=== PATIENT | male | born 1960 | race Caucasian/White ===

== ENCOUNTER 2017-12-30 08:14 | Day surgery (SDC) | payer OTHER ==
[2017-12-23 10:04] VITALS: BMI 23.7
[2017-12-30 08:46] LABS: BASO # 0.01 K/mm3 (0.0-2.0); BASO % 0.2 % (0.0-3.0); EOS # 0.2 (0.0-0.7); EOS % 2.9 % (1.5-5.0); GRAN # 3.24 (1.4-6.5); GRAN % 55.2 % (50.0-68.0); LYMPH # 1.9 (1.2-3.4); LYMPH % 32.7 % (22.0-35.0); MEAN CELL VOLUME 89.2 fl (80.0-105.0); MEAN CORPUSCULAR HEMOGLOBIN 30.4 pg (25.0-35.0); MEAN CORPUSCULAR HGB CONC 34.1 g/dl (31.0-37.0); MEAN PLATELET VOLUME 9.3 fl (7.0-11.0); MONO # 0.5 (0.1-0.6); RBC 4.27 10^6/uL (3.5-6.1); RED CELL DISTRIBUTION WIDTH 13.6 % (11.5-14.5); WHITE BLOOD COUNT 5.9 10^3/ul (4.5-11.0)
[2017-12-30 08:55] LABS: INR 0.99; PARTIAL THROMBOPLASTIN TIME 30.6 Seconds (25.1-36.5); PROTHROMBIN TIME 11.4 SECONDS (9.4-12.5)
[2017-12-30 08:57] LABS: BLOOD UREA NITROGEN 21 mg/dL (7-21); CALCIUM 9.4 mg/dL (8.4-10.5); GFR NON-AFRICAN AMERICAN > 60
[2017-12-30] MEDS ORDERED: Lidocaine PF 2% (5 ml) Inj (For Cardiac Arrhy) ONE (09:09)
[2017-12-30] MEDS ORDERED: Iodixanol 320 MG/ML 200 ML BOTTLE IV ONE (09:11)
[2017-12-30] MEDS ORDERED: Iodixanol 320 MG/ML 100 ML BOTTLE IV ONE ×2 (09:11→10:15)
[2017-12-30] MEDS ORDERED: Nitroglycerin 50mg in D5W 50 MG/250 ML BOTTLE IV ONE (09:13)
[2017-12-30 09:14] VITALS: O2SAT 98
[2017-12-30] MEDS ORDERED: Midazolam 2 MG/2 ML VIAL ONE ×3 (09:42→10:22)
[2017-12-30] MEDS ORDERED: Oxycodone/Acetaminophen 5/325 mg Tab PO PRN (11:31)
[2017-12-30] MEDS ORDERED: Sodium Chloride 0.45% 1,000 ML IV SCH (11:45)
[2017-12-30 12:41] VITALS: TEMP 98
[2017-12-30 13:13] VITALS: RESP 18
[2017-12-30 14:44] VITALS: BP 142/76; PULSE 58
--- NOTE | 2017-12-30 17:35 | VASCULAR ---
PROCEDURE: Sub selective celiac and SMA arteriograms HISTORY: Metastatic colorectal CA. Evaluation for Y 90 radio embolization. PHYSICIAN(S): Jean-Paul Maria MD. TECHNIQUE: The relative risks and indications of the procedure were explained the patient consent obtained. Patient placed supine on angiogram table right groin prepped and draped usual sterile fashion. Conscious sedation monitoring were provided throughout the procedure by a nurse. The right common femoral artery was punctured and a 5 [place] sheath placed. 5 [place] C2 catheter was placed in the proximal SMA. A DSA SMA arteriogram was performed. Next the catheter was placed in the origin celiac axis and a DSA celiac axis arteriogram performed. A Progreat micro catheter was placed through the 5 [place] catheter. Multiple attempts at engaging the origin of the left gastric artery were unsuccessful. Selective imaging of the common hepatic artery was performed. Next sub selective imaging of the left hepatic artery, middle hepatic artery, and right hepatic artery was performed. No embolization was required. Tc MAA was instilled into the right hepatic artery. The catheters and sheath was removed hemostasis obtained with a Perclose device. The patient tolerated the procedure well. FINDINGS: No apparent supply to the liver is appreciated off the SMA injection. The portal vein is patent. The SMA is widely patent. No apparent supplied was identified to the left lobe of the liver. The middle hepatic artery supplies segment 4A and B. The right hepatic artery is patent and normal with a moderate tumor blush. IMPRESSION: Y 90 mapping as described above.
== END 2017-12-30 17:00 | disposition home or self-care (01) ==
LOC: SDSVAS 08:14
PROVIDERS: ATTEND Radiology Vascular & Interventional Radiology
DX: C78.7 Secondary malignant neoplasm of liver and intrahepatic bile duct (principal); C18.9 Malignant neoplasm of colon, unspecified
CPT/HCPCS: 36247 ×2; 36248 ×2; 36415; 75726 ×2; 75774 ×3; 80048; 85025; 85610; 85730; 99152; 99153; C1760 ×2; C1769 ×4; C1894; J1644; J2250; J2405; J3010; J7030; Q9966; Q9967

== ENCOUNTER 2018-01-08 10:32 | Inpatient (IN) | payer OTHER ==
[2018-01-08 10:48] VITALS: BMI 23.1
[2018-01-08] MEDS ORDERED: Sodium Chloride 0.9% 500 ML IV STA ×2 (11:02→12:03)
[2018-01-08 11:34] LABS: VENOUS BLOOD GAS BASE EXCESS 3.3 mmol/L (0.0-2.0); VENOUS BLOOD GAS PO2 23 mm/Hg (30-55); VENOUS BLOOD PH 7.39 (7.32-7.43)
[2018-01-08] MEDS ORDERED: Morphine 4 mg/ml ISec IVP STA (11:36)
[2018-01-08 11:37] LABS: BASO # 0.01 K/mm3 (0.0-2.0); BASO % 0.1 % (0.0-3.0); EOS % 0.3 % (1.5-5.0); GRAN # 8.28 (1.4-6.5); GRAN % 75.2 % (50.0-68.0); HEMOGLOBIN 13.1 g/dL (14.0-18.0); LYMPH # 1.3 (1.2-3.4); LYMPH % 12.1 % (22.0-35.0); MEAN CELL VOLUME 86.6 fl (80.0-105.0); MEAN CORPUSCULAR HEMOGLOBIN 30.9 pg (25.0-35.0); MEAN CORPUSCULAR HGB CONC 35.7 g/dl (31.0-37.0); MEAN PLATELET VOLUME 9.5 fl (7.0-11.0); MONO # 1.4 (0.1-0.6); MONO % 12.3 % (1.0-6.0); RBC 4.24 10^6/uL (3.5-6.1); RED CELL DISTRIBUTION WIDTH 13.1 % (11.5-14.5)
[2018-01-08 11:53] LABS: ALB/GLOB RATIO 1.1 (1.1-1.8); ALBUMIN 4.3 g/dL (3.0-4.8); ALT/SGPT 37 U/L (7-56); AST/SGOT 93 U/L (17-59); BLOOD UREA NITROGEN 25 mg/dL (7-21); CALCIUM 9.7 mg/dL (8.4-10.5); GFR NON-AFRICAN AMERICAN > 60; LIPASE 92 U/L (23-300)
--- NOTE | 2018-01-08 12:13 | RAD ---
Date of service: 01/08/2018 HISTORY: abd pain COMPARISON: No prior. FINDINGS: LUNGS: No active pulmonary disease. PLEURA: No significant pleural effusion identified, no pneumothorax apparent. CARDIOVASCULAR: Normal. OSSEOUS STRUCTURES: No significant abnormalities. VISUALIZED UPPER ABDOMEN: Normal. OTHER FINDINGS: None. IMPRESSION: No active disease.
--- NOTE | 2018-01-08 12:41 | ED PDOC ---
Arrival/HPI - General Historian: Patient, Family <Lachelle Heller - Last Filed: 01/08/18 19:38> <Clint Garzon - Last Filed: 01/11/18 11:24> - General Chief Complaint: Abdominal Pain Time Seen by Provider: 01/08/18 10:59 - History of Present Illness Narrative History of Present Illness (Text): 01/08/18 12:49 57-year-old male with a history of metastatic colon cancer to liver presents today with worsening right sided abdominal pain. Patient states he's been having abdominal pain for the past week. Patient states he had a CAT scan of the abdomen as well well as an MRI of the abdomen. Patient states he has not taken any medications for pain at home. Patient states he's been having nausea vomiting and diarrhea. Patient is complaining of subjective fevers and chills at home. He denies any urinary symptoms. Denies bladder or bowel incontinence. Patient is complaining of cramping sensation in the bilateral lower legs. ( Lachelle Heller) Past Medical History - Provider Review Nursing Documentation Reviewed: Yes - Travel History Have you recently traveled outside [place] w/in the past 3 mons?: Yes If Yes, travel location?: [facility] - Infectious Disease Hx of Infectious Diseases: None - Cardiac Hx Cardiac Disorders: No Hx Pacemaker: No - Pulmonary Hx Respiratory Disorders: No - Neurological Hx Neurological Disorder: No Hx Paralysis: No - HEENT Hx HEENT Disorder: No - Renal Hx Renal Disorder: No - Endocrine/Metabolic Hx Diabetes Mellitus Type 2: Yes - Hematological/Oncological Hx Blood Disorders: No Hx Blood Transfusions: No - Integumentary Hx Dermatological Disorder: No - Musculoskeletal/Rheumatological Hx Musculoskeletal Disorders: Yes (right shoulder; tear) - Gastrointestinal Other/Comment: colon cancer with mets - Psychiatric Hx Psychophysiologic Disorder: No Hx Emotional Abuse: No Hx Physical Abuse: No Hx Substance Use: No - Surgical History Other/Comment: 12/2017 "camera through groin to look at liver" - Anesthesia Hx Anesthesia: Yes Hx Anesthesia Reactions: No Hx Malignant Hyperthermia: No - Suicidal Assessment Feels Threatened In Home Enviroment: No <Lachelle Heller - Last Filed: 01/08/18 19:38> Family/Social History - Physician Review Nursing Documentation Reviewed: Yes Family/Social History: Unknown Family HX Smoking Status: Never Smoked Hx Alcohol Use: Yes (past ETOH) Hx Substance Use: No <Lachelle Heller - Last Filed: 01/08/18 19:38> Allergies/Home Meds <Lachelle Heller - Last Filed: 01/08/18 19:38> <Clint Garzon - Last Filed: 01/11/18 11:24> Allergies/Adverse Reactions: Allergies No Known Allergies Allergy (Verified 10/30/17 18:26) Home Medications: Home Meds Medication Instructions Recorded Confirmed Glyburide/Metformin HCl 1 tab PO DAILY 12/23/17 01/08/18 [Glucovance 5 mg-500 mg] Review of Systems - Review of Systems Constitutional: Fatigue, Fevers Respiratory: Cough. absent: SOB Cardiovascular: absent: Chest Pain, Palpitations Gastrointestinal: Abdominal Pain, Diarrhea, Nausea, Vomiting Genitourinary Male: absent: Dysuria, Frequency, Hematuria, Urinary Output Changes Musculoskeletal: Arthralgias. absent: Back Pain, Neck Pain Skin: absent: Rash, Pruritis Neurological: absent: Headache, Dizziness Psychiatric: absent: Anxiety, Depression, Suicidal Ideation <Lachelle Heller T - Last Filed: 01/08/18 19:38> Physical Exam Vital Signs Reviewed: Yes Temperature: Afebrile Blood Pressure: Normal Pulse: Tachycardic Respiratory Rate: Normal Appearance: Positive for: Well-Appearing, Non-Toxic, Comfortable Pain Distress: None Mental Status: Positive for: Alert and Oriented X 3 - Systems Exam Head: Present: Atraumatic Mouth: Present: Moist Mucous Membranes Neck: Present: Normal Range of Motion Respiratory/Chest: Present: Clear to Auscultation, Good Air Exchange. No: Respiratory Distress, Accessory Muscle Use Cardiovascular: Present: Regular Rate and Rhythm, Normal S1, S2. No: Murmurs Abdomen: Present: Tenderness (+ right sided abd tenderness). No: Distention, Peritoneal Signs, Rebound, Guarding Back: Present: Normal Inspection. No: Midline Tenderness, Paraspinal Tenderness Upper Extremity: Present: Normal ROM Lower Extremity: Present: NORMAL PULSES, Normal ROM, Neurovascularly Intact, Capillary Refill < 2 s. No: Edema, CALF TENDERNESS Neurological: Present: GCS=15, Speech Normal Skin: Present: Warm, Dry, Normal Color. No: Rashes Psychiatric: Present: Alert, Oriented x 3 <Lachelle Heller - Last Filed: 01/08/18 19:38> Vital Signs Temp Pulse Resp BP Pulse Ox 01/08/18 15:30 79 18 98 01/08/18 14:58 98.3 F 79 19 121/74 98 01/08/18 12:40 98.2 F 100 H 18 98 01/08/18 12:07 100.5 F H 01/08/18 10:37 98.6 F 102 H 18 145/90 98 Medical Decision Making <Lachelle Heller - Last Filed: 01/08/18 19:38> <HieustephanyClint - Last Filed: 01/11/18 11:24> ED Course and Treatment: 01/08/18 12:51 Patient is nontoxic well appearing with stable vital signs presenting with right sided abdominal pain. hx of colon cancer with mets to liver. pt had CT on 01/04 and MR on 01/06 for same pain. pt found to have rectal temp 100. 5 CBC: wnl CMP: elevated LFts, glucose; 350 Lipase: wnl Urinalysis: + blood, Ultrasound: bilateral lower extremities; no dvt verbal report from [facility]. Patient reassessment: pt was given morphine and zofran. pt feeling better after medications. Discussed all results with patient in depth case discussed with dr. cabrera; accepts observational status admission for abdominal pain and fever. Impression: abdominal pain, fever, hyperglycemia admit observational status to med surg 01/08/18 14:18 (Lachelle Heller) - Lab Interpretations Microbiology Results: Microbiology Results 01/08/18 14:42 Blood Blood Culture - Preliminary NO GROWTH AFTER 48 HOURS 01/08/18 14:30 Blood Blood Culture - Preliminary NO GROWTH AFTER 48 HOURS 01/08/18 13:00 Urine Urine Culture - Final No Growth (<1,000 CFU/ML) Lab Results: 01/09/18 06:30 01/09/18 06:30 Lab Results 01/09/18 07:28: POC Glucose (mg/dL) 181 H 01/09/18 06:30: Sodium 137, Chloride 99, Potassium 4.1, Carbon Dioxide 28, Anion Gap 14, BUN 20, Creatinine 1.0, Est GFR ( Amer) > 60, Est GFR (Non- Af Amer) > 60, Random Glucose 187 H, Calcium 8.9, Phosphorus 2.8, Magnesium 2.1 , Total Bilirubin 1.4 H, AST 104 H, ALT 67 H, Alkaline Phosphatase 151 H, Total Protein 7.6, Albumin 3.8, Globulin 3.8, Albumin/Globulin Ratio 1.0 L 01/09/18 06:30: WBC 9.0, RBC 4.30, Hgb 13.0 L, Hct 37.5 L, MCV 87.2, MCH 30.2, MCHC 34.7, RDW 13.2, Plt Count 177, MPV 9.7, Gran % 71.3 H, Lymph % (Auto) 13.5 L, [place] % (Auto) 14.8 H, Eos % (Auto) 0.3 L, Baso % (Auto) 0.1, Gran # 6.39, Lymph # (Auto) 1.2, [place] # (Auto) 1.3 H, Eos # (Auto) 0.0, Baso # (Auto) 0.01 01/08/18 21:01: POC Glucose (mg/dL) 263 H 01/08/18 16:48: PT 13.8 H, INR 1.21, APTT 29.4 01/08/18 16:48: Procalcitonin 0.62 H 01/08/18 16:29: POC Glucose (mg/dL) 123 H 01/08/18 15:22: POC Glucose (mg/dL) 178 H 01/08/18 13:00: Urine Color Yellow, Urine Appearance Clear, Urine pH 7.0, Ur Specific [place] 1.025, Urine Protein >=300 H, Urine Glucose (UA) Negative, Urine Ketones Negative, Urine Blood Moderate H, Urine Nitrate Negative, Urine Bilirubin Negative, Urine Urobilinogen 1.0 H, Ur Leukocyte Esterase Negative, Urine RBC 2 - 5, Urine WBC 0 - 2, Ur Epithelial Cells 0 - 2, Urine Bacteria Few 01/08/18 11:20: pO2 23 L, VBG pH 7.39, VBG pCO2 48.0, VBG HCO3 29.1 H, VBG Total CO2 30.6 H, VBG O2 Sat (Calc) 42.2, VBG Base Excess 3.3 H, VBG Potassium 4.5, Sodium 129.0 L, Chloride 94.0 L, Glucose 355 H, Lactate 1.6, FiO2 21.0, Venous Blood Potassium 4.5 01/08/18 11:20: WBC 11.0 D, RBC 4.24, Hgb 13.1 L, Hct 36.7 L, MCV 86.6, MCH 30.9, MCHC 35.7, RDW 13.1, Plt Count 163, MPV 9.5, Gran % 75.2 H, Lymph % (Auto ) 12.1 L, [place] % (Auto) 12.3 H, Eos % (Auto) 0.3 L, Baso % (Auto) 0.1, Gran # 8.28 H, Lymph # (Auto) 1.3, [place] # (Auto) 1.4 H, Eos # (Auto) 0.0, Baso # (Auto ) 0.01 01/08/18 11:20: Sodium 131 L, Chloride 92 L, Potassium 4.7, Carbon Dioxide 27, Anion Gap 16, BUN 25 H, Creatinine 1.0, Est GFR ( Amer) > 60, Est GFR ( Non-Af Amer) > 60, Random Glucose 350 H* D, Calcium 9.7, Total Bilirubin 1.3, AST 93 H, ALT 37, Alkaline Phosphatase 140 H D, Total Protein 8.5 H, Albumin 4.3 , Globulin 4.1, Albumin/Globulin Ratio 1.1, Lipase 92 - RAD Interpretation Radiology Orders: 01/08/18 10:59 CHEST PORTABLE [RAD] Stat 01/08/18 11:43 DUPLEX LOWER EXTRM VEIN BILAT [US] Stat 01/08/18 14:04 ABDOMEN COMPLETE [US] Stat - Medication Orders Current Medication Orders: Acetaminophen (Tylenol 325mg Tab) 650 mg PO Q6H PRN PRN Reason: Fever >100.4 F Last Admin: 01/08/18 20:20 Dose: 650 mg [facility] Pain/Vitals Document 01/08/18 20:20 ALBINO (Rec: 01/08/18 20:20 ALBINO [facility]) Pain Reassessment Is This A Pain ReAssessment? No Presence of Pain Presence of Pain No Vitals Temperature (97.6 F-99.6 F) 102.2 F Temperature Source Oral Re-Assess: ISAIAH Pain/Vitals Document 01/08/18 21:20 ALBINO (Rec: 01/08/18 21:40 ALBINO [facility]) Pain Reassessment Is This A Pain ReAssessment? No Presence of Pain Presence of Pain No Vitals Temperature (97.6 F-99.6 F) 100.5 F Temperature Source Oral Acetaminophen (Tylenol 325mg Tab) 650 mg PO Q6H PRN PRN Reason: Headache Last Admin: 01/11/18 08:49 Dose: 650 mg [facility] Pain/Vitals Document 01/11/18 08:49 VS (Rec: 01/11/18 08:50 VS [id number]) Pain Reassessment Is This A Pain ReAssessment? No Presence of Pain Presence of Pain Yes Pain Scale Used Pain Scale Used Numeric Location Pain Location Body Hearing Screen Coordinator Description Constant Intensity 5 Scale Used Numeric Pain Behavior Facial Grimacing Acetaminophen (Tylenol 325mg Tab) 650 mg PO Q6H PRN PRN Reason: Pain, Mild (1-3) Last Admin: 01/09/18 14:47 Dose: 650 mg [facility] Pain/Vitals Document 01/09/18 14:47 SOUSV (Rec: 01/09/18 14:47 SOUSV [id number]) Pain Reassessment Is This A Pain ReAssessment? No Presence of Pain Presence of Pain Yes Pain Scale Used Pain Scale Used Numeric Location Upper or Lower Upper Pain Location Body Site Abdomen Description Intermittent Intensity 3 Scale Used Numeric Alleviating Factors Medication Re-Assess: [facility] Pain/Vitals Document 01/09/18 15:47 SOUSV (Rec: 01/09/18 16:26 SOUSV [facility] [id number]) Pain Reassessment Is This A Pain ReAssessment? Yes Sleep Is patient sleeping during reassessment? Yes Docusate Sodium (Colace) 100 mg PO BID PRN PRN Reason: Constipation Heparin Sodium (Porcine) (Heparin) 5,000 units SC Q8 ROGER PRN Reason: Protocol Last Admin: 01/11/18 05:21 Dose: 5,000 units Subcutaneous Administrations Document 01/11/18 05:21 KTB (Rec: 01/11/18 05:22 KTB [facility] [id number]) Injection Site MAR Injection Site Left Arm Charges for Administration # of Subcutaneous Administrations 1 Sodium Chloride (Sodium Chloride 0.9%) 1,000 mls @ 75 mls/hr IV .[id number] [facility] Last Admin: 01/10/18 15:15 Dose: 75 mls/hr eMAR Start Stop Document 01/10/18 15:15 JW (Rec: 01/10/18 15:15 JW [id number]) Intravenous Solution Start Date 01/10/18 Start Time 15:15 Cefepime HCl (Maxipime 1gm) 1 gm in 100 mls @ 100 mls/hr IVPB Q8 ROGER PRN Reason: Protocol Last Admin: 01/11/18 05:23 Dose: 100 mls/hr eMAR Start Stop Document 01/11/18 05:23 KTB (Rec: 01/11/18 05:23 KTB [facility] [id number]) Intravenous Solution Start Date 01/11/18 Start Time 05:23 End Date 01/11/18 End time 06:23 Total Infusion Time 60 Insulin Human Regular (Humulin R Low) 0 units SC ACHS ROGER PRN Reason: Protocol Last Admin: 01/11/18 11:18 Dose: 3 unit MAR Blood Glucose Document 01/11/18 11:18 VS (Rec: 01/11/18 11:18 VS [id number]) Blood Glucose Finger Stick Blood Glucose (70-120) 257 Subcutaneous Administrations Document 01/11/18 11:18 VS (Rec: 01/11/18 11:18 VS [id number]) Injection Site MAR Injection Site Left Arm Charges for Administration # of Subcutaneous Administrations 1 Lactobacillus Acidophilus (Bacid Acidophilus) 1 cap PO BID [facility] Last Admin: 01/11/18 09:49 Dose: 1 cap Morphine Sulfate (Morphine) 2 mg IVP Q4H PRN PRN Reason: Pain, severe (8-10) Last Admin: 01/10/18 16:27 Dose: 2 mg MAR Pain Assessment Document 01/10/18 16:27 JW (Rec: 01/10/18 16:27 JW [facility] [id number]) Pain Reassessment Is this a pain reassessment? No Sleep Is patient sleeping during reassessment? No Presence of Pain Presence of Pain Yes Location Pain Location Body Site Shoulder Description Pain Behavior Moaning IVP Administration Document 01/10/18 16:27 JW (Rec: 01/10/18 16:27 JW [id number]) Charges for Administration # of IVP Administrations 1 Re-Assess: ISAIAH Pain Assessment Document 01/10/18 17:27 JW (Rec: 01/10/18 18:51 [id number]) Pain Reassessment Is this a pain reassessment? Yes Ondansetron HCl (Zofran Inj) 4 mg IVP Q6H PRN PRN Reason: Nausea/Vomiting Discontinued Medications Docusate Sodium (Colace) 100 mg PO BID ROGER Sodium Chloride (Sodium Chloride 0.9%) 500 mls @ 999 mls/hr IV .Q31M STA Stop: 01/08/18 11:32 Last Admin: 01/08/18 11:26 Dose: 999 mls/hr eMAR Start Stop Document 01/08/18 11:26 [email or web address] (Rec: 01/08/18 11:27 [email or web address] [id number]) Intravenous Solution Start Date 01/08/18 Start Time 11:27 Sodium Chloride (Sodium Chloride 0.9%) 500 mls @ 999 mls/hr IV .Q31M STA Stop: 01/08/18 12:33 Last Admin: 01/08/18 12:11 Dose: 999 mls/hr eMAR Start Stop Document 01/08/18 12:11 [email or web address] (Rec: 01/08/18 12:11 [email or web address] [id number]) Intravenous Solution Start Date 01/08/18 Start Time 12:11 Ibuprofen (Motrin Tab) 600 mg PO STAT STA Stop: 01/08/18 11:51 Last Admin: 01/08/18 12:07 Dose: 600 mg MAR Pain/Vitals Document 01/08/18 12:07 [email or web address] (Rec: 01/08/18 12:07 [email or web address] [id number]) Pain Reassessment Is This A Pain ReAssessment? No Sleep Is patient sleeping during reassessment? No Presence of Pain Presence of Pain Yes Pain Scale Used Pain Scale Used Numeric Vitals Temperature (97.6 F-99.6 F) 100.5 F Temperature Source Rectal Morphine Sulfate (Morphine) 4 mg IVP STAT STA Stop: 01/08/18 11:37 Last Admin: 01/08/18 12:07 Dose: 4 mg MAR Pain Assessment Document 01/08/18 12:07 [email or web address] (Rec: 01/08/18 12:08 [email or web address] [id number]) Pain Reassessment Is this a pain reassessment? No Sleep Is patient sleeping during reassessment? No Presence of Pain Presence of Pain Yes Pain Scale Used Pain Scale Used Numeric Location Left, Right or Bilateral Right Pain Location Body Site Abdomen Description Description Constant Intensity of Pain at present 10 Pain Behavior Facial Grimacing Aggravating Factors Changing Position Alleviating Factors/Management Position Change Techniques Alleviating Factors Medication IVP Administration Document 01/08/18 12:07 [email or web address] (Rec: 01/08/18 12:08 [email or web address] [id number]) Charges for Administration # of IVP Administrations 1 Ondansetron HCl (Zofran Inj) 4 mg IVP STAT STA Stop: 01/08/18 11:37 Last Admin: 01/08/18 12:08 Dose: 4 mg IVP Administration Document 01/08/18 12:08 [email or web address] (Rec: 01/08/18 12:08 [email or web address] [id number]) Charges for Administration # of IVP Administrations 1 - PA / BARIATRIC NURSE / Resident Statement / has reviewed & agrees with the documentation as recorded. / has examined the patient and agrees with the treatment plan. <Clint Garzon - Last Filed: 01/11/18 11:24> Disposition/Present on Arrival - Present on Arrival Any Indicators Present on Arrival: No History of DVT/PE: No History of Uncontrolled Diabetes: No Urinary Catheter: No History of Decub. Ulcer: No History Surgical Site Infection Following: None - Disposition Have Diagnosis and Disposition been Completed?: Yes Disposition Time: 14:00 Patient Plan: Observation <Lachelle Heller - Last Filed: 01/08/18 19:38> <Clint Garzon - Last Filed: 01/11/18 11:24> - Disposition Diagnosis: Abdominal pain, Fever, Hyperglycemia Disposition: HOSPITALIZED Condition: FAIR
[2018-01-08 13:13] LABS: URINE BILIRUBIN NEGATIVE (NEGATIVE); URINE BLOOD MODERATE (NEGATIVE); URINE GLUCOSE (UA) NEGATIVE (NEGATIVE); URINE LEUKOCYTE ESTERASE NEGATIVE Leu/uL (NEGATIVE); URINE PROTEIN >=300 mg/dL (<30 mg/dL)
[2018-01-08 13:14] LABS: URINE APPEARANCE CLEAR (CLEAR); URINE COLOR YELLOW (YELLOW)
[2018-01-08 13:21] LABS: URINE BACTERIA FEW (NEG); URINE EPITHELIAL CELLS 0 - 2 /hpf (0-5); URINE WBC 0 - 2 /hpf (0-6)
--- NOTE | 2018-01-08 15:01 | US ---
Date of service: 01/08/2018 HISTORY: abd pain COMPARISON: None. TECHNIQUE: Sonographic evaluation of the abdomen. FINDINGS: LIVER: Measures cm. Normal echogenicity of the liver parenchyma. No mass. No intrahepatic bile duct dilatation. GALLBLADDER: Unremarkable. No gallstones. COMMON BILE DUCT: Measures mm. No stones. No dilatation. PANCREAS: Unremarkable as visualized. No mass. No ductal dilatation. RIGHT KIDNEY: Measures cm. Normal echogenicity. No calculus, mass, or hydronephrosis. LEFT KIDNEY: Measures cm. Normal echogenicity. No calculus, mass, or hydronephrosis. SPLEEN: Normal in size and contour. No mass. AORTA: No aneurysmal dilatation. IVC: Unremarkable. OTHER FINDINGS: None. IMPRESSION: Unremarkable abdominal sonogram.
--- NOTE | 2018-01-08 16:34 | CP.PCM.HP ---
<WendyTheron - Last Filed: 01/08/18 17:48> History of Present Illness - History of Present Illness History of Present Illness: H&P for Dr. Vandana Nguyen PGY1 CC: Right sided abdominal pain HPI: 57- year old male with a PMH of colon cancer with metastasis to the liver and DM, presents to the ED with the complaint of progressively worsening right sided abdominal pain. Patient had a liver mapping procedure done by interventional radiology 2 weeks ago. He endorsed minimal pain after the procedure, but overall tolerated it well. Patient states that this right sided abdominal pain started about 4 days ago which he describes as constant, sharp, stabbing in nature, and denies radiation. The patient has not taken anything at home for his pain. The patient scales the pain as a 6/10 currently, however initially was a 10/10. Patient states that these symptoms are associated with loss of appetite, chills, nausea, vomiting x2, and dizziness. Patient denies fever, headaches, chest pain, palpitations, shortness of breath, muscle aches, joint pain, and urinary symptoms. The patient states that he had a CT scan on and MRI on 01/06 of the abdomen for a scheduled Liver Directed Therapy procedure that will be done by Dr. Maria (IR) next week. Patient is currently undergoing chemotherapy treatment, but states that he has not taken chemo drugs in over a month as he was instructed to stop them before the aforementioned procedures. Patients cancer and current chemotherapeutic regimen are being managed by Dr. Ochoa Rodriguez. PMH: Colorectal Cancer with metastasis, DM PSH: Liver mapping procedure Family history: mother- in hospital (unknown reason); father , had DM Allergies: NKDA Medications: Glucophage Social: Denies Tobacco use, Admits to prior social EtOH use, denies illicit drug use. Not currently working. Onc: Dr. Ochoa Rodriguez PMD: Dr. Arlin Rodriguez Present on Admission - Present on Admission Any Indicators Present on Admission: No Review of Systems - Constitutional Constitutional: Weakness. absent: Chills, Fever - EENT Eyes: absent: Blurred Vision, Change in Vision Ears: absent: Ear Discharge, Tinnitus Nose/Mouth/Throat: absent: Nasal Congestion, Nasal Discharge - Cardiovascular Cardiovascular: absent: Chest Pain, Dyspnea - Respiratory Respiratory: absent: Cough, Dyspnea - Gastrointestinal Gastrointestinal: Abdominal Pain, Nausea. absent: Bloating, Vomiting - Genitourinary Genitourinary: absent: Difficulty Urinating, Dysuria - Musculoskeletal Musculoskeletal: absent: Back Pain, Neck Pain - Integumentary Integumentary: absent: Bleeding Lesions, Changing Lesions - Neurological Neurological: Dizziness. absent: Confusion, Numbness, Headaches - Psychiatric Psychiatric: absent: Anxiety, Depression Past Patient History - Infectious Disease Hx of Infectious Diseases: None - Past Social History Smoking Status: Never Smoked - CARDIAC Hx Cardiac Disorders: No Hx Pacemaker: No - PULMONARY Hx Respiratory Disorders: No - NEUROLOGICAL Hx Neurological Disorder: No - HEENT Hx HEENT Problems: No - RENAL Hx Chronic Kidney Disease: No - ENDOCRINE/METABOLIC Hx Diabetes Mellitus Type 2: Yes - HEMATOLOGICAL/ONCOLOGICAL Hx Blood Disorders: No - INTEGUMENTARY Hx Dermatological Problems: No - MUSCULOSKELETAL/RHEUMATOLOGICAL Hx Musculoskeletal Disorders: Yes (right shoulder; tear) Hx Falls: No - GASTROINTESTINAL Other/Comment: colon cancer with mets - PSYCHIATRIC Hx Psychophysiologic Disorder: No Hx Emotional Abuse: No Hx Physical Abuse: No - SURGICAL HISTORY Other/Comment: 12/2017 "camera through groin to look at liver" - ANESTHESIA Hx Anesthesia: Yes Hx Anesthesia Reactions: No Hx Malignant Hyperthermia: No Meds Allergies/Adverse Reactions: Allergies Allergy/AdvReac Type Severity Reaction Status Date / Time No Known Allergies Allergy Verified 10/30/17 18:26 Physical Exam - Constitutional Appears: Well, Non-toxic, No Acute Distress - Head Exam Head Exam: ATRAUMATIC, NORMAL INSPECTION, NORMOCEPHALIC - Eye Exam Eye Exam: EOMI Pupil Exam: PERRL - ENT Exam ENT Exam: Mucous Membranes Moist - Respiratory Exam Respiratory Exam: Clear to Auscultation Bilateral, NORMAL BREATHING PATTERN. absent: Rhonchi, Wheezes, Respiratory Distress - Cardiovascular Exam Cardiovascular Exam: REGULAR RHYTHM, +S1, +S2. absent: Systolic Murmur - GI/Abdominal Exam GI & Abdominal Exam: Normal Bowel Sounds, Soft, Tenderness. absent: Distended, Guarding, Rebound, Rigid - Extremities Exam Extremities exam: Positive for: pedal pulses present. Negative for: calf tenderness, pedal edema - Back Exam Back exam: absent: CVA tenderness (L), CVA tenderness (R), vertebral tenderness - Neurological Exam Neurological exam: Alert, Oriented x3 - Psychiatric Exam Psychiatric exam: Normal Affect, Normal Mood - Skin Skin Exam: Dry, Intact, Normal Color, Warm Results - Vital Signs Recent Vital Signs: Last Vital Signs Temp 99.3 F 01/08/18 16:21 Pulse 77 01/08/18 16:21 Resp 18 01/08/18 16:21 BP 130/82 01/08/18 16:21 Pulse Ox 99 01/08/18 16:21 - Labs Result Diagrams: 01/08/18 11:20 01/08/18 11:20 Labs: Laboratory Results - last 24 hr 01/08/18 15:22 POC Glucose (mg/dL) 178 H Assessment & Plan - Assessment and Plan (Free Text) Assessment: 57M, PMH of metastatic colon cancer to the liver and DM, presents to the ED with right sided abdominal pain 2 weeks after a laparascopic liver mapping procedure done by IR. In ED patient given morphine and zofran that resolved the symptoms. Vitals and labs significant for fever and hyperglycemia. Patient admitted to observation. Plan: Right-sided Abdominal Pain - Likely secondary to metastatic colon cancer to the liver vs. post- laparascopic liver mapping procedure pain - Abdominal US (01/08): unremarkable - Abdomen MRI (01/06): Heterogenous hepatic parenchyma with innumerable focal hepatic lesions consistent with metastases - Liver CT (01/04): Metastatic disease similar to previous exam - Morphine 2mg IV Q4 PRN - Zofran 4mg Q4 IV PRN - NS@75 - Will continue to monitor Fever - Patient had temperature of 100.5 on admission - Tylenol for fevers - f/u morning labs, blood and urine cultures - Infectious Disease, Dr. Khalil consulted. Further recommendations to follow Colon Cancer with Liver Metastases - Scheduled Liver Directed Therapy by Dr. Maria next week - Receiving chemotherapy but has had no therapy secondary to multiple procedures this past month - Dr Rodriguez, patient's oncologist, consulted. Further recommendations to follow Lower Extremity Pain/Tenderness - LE Duplex US negative - Started on PPX Heparin - Will continue to monitor Hx of DM - 350 on admission, now 178 - ISS-low - Accuchecks - Will continue to monitor PPX GI: not indicated DVT: Heparin SC Q8 Diet: Diabetic Diet Dispo: Patient scheduled for Liver Directed Therapy 01/14/[address] Maria Case discussed and reviewed with Dr. Les Nguyen PGY1 <Vandana Saldana R - Last Filed: 01/09/18 15:35> Results - Vital Signs Recent Vital Signs: Last Vital Signs Temp 99.3 F 01/09/18 09:27 Pulse 86 01/09/18 07:00 Resp 19 01/09/18 07:00 BP 153/97 H 01/09/18 07:00 Pulse Ox 97 01/09/18 07:00 - Labs Result Diagrams: 01/09/18 06:30 01/09/18 06:30 Labs: Laboratory Results - last 24 hr 01/09/18 01/09/18 11:39 14:17 POC Glucose (mg/dL) 414 H* 340 H Attending/Attestation - Attestation I have personally seen and examined this patient.: Yes I have fully participated in the care of the patient.: Yes I have reviewed all pertinent clinical information: Yes Notes (Text): Patient seen and examined by me at 4:00PM with resident 01/08/18. Case including HPI, physical exam, and assessment and plan discussed with resident. Agree with above with following additions/corrections. Patient is a 57-year-old male with past medical history significant for stage IV colon cancer with metastases to the liver and type 2 diabetes that presented to the emergency room with right-sided abdominal pain. Patient states that he had a liver mapping procedure done approximately 2 weeks ago with interventional radiology. Patient states that he is scheduled for a liver procedure with interventional radiologist on 01/13/2018. He states that approximately 2 days ago he had an abdominal MRI done. Abdominal MRI per radiologist showed heterogeneous hepatic parenchyma with innumerable focal hepatic lesions consistent with known metastatic disease. Patient states that he has been having abdominal pain since before the procedure 2 weeks ago. He states he did talk to the interventional radiologist about this. Over the past week patient feels that the abdominal pain has worsened. He states that the pain is a 10 out of 10 and sharp in nature. It is located on the right side and does not radiate. He states initially the pain would come and go. However, now the pain has become constant. Patient tried pain medications at home with no relief. He states he has some associated dizziness and nausea. He states that he did not take his temperature at home however he has been having chills. He has also had a loss of appetite for the past couple of days. No vomiting. No chest pain or shortness of breath. No headaches or change in vision. No neck pain or back pain. No dysuria. No diarrhea or constipation. 12 point review of systems reviewed by me. Please see HPI. All other systems are negative. Physical exam: General: Awake and alert lying in bed in no acute distress HEENT: Normocephalic atraumatic. Pupils equal reactive. No scleral icterus. Oropharynx is pink. Positive dry mucous membranes. No pharyngeal erythema or exudate appreciated. Neck is supple. Hearing grossly intact. Ears and nose externally unremarkable Cardiovascular: Normal rhythm. Normal S1, S2. No murmurs, rubs, or gallops appreciated Pulmonary: Normal respiratory effort. No rhonchi, rales or wheezing appreciated. Gastrointestinal: Soft, nondistended. Positive right sided tenderness with palpation. Positive bowel sounds all 4 quadrants, no guarding. Musculoskeletal: Normal range of motion all extremities. No calf tenderness. No edema appreciated. Central nervous system: AAOx3. CN2-12 grossly intact. Dermatologic: Skin warm and dry Assessment and plan: Patient is a 57-year-old male with past medical history significant for stage IV colon cancer with metastases to the liver and type 2 diabetes that presented to the emergency room with right-sided abdominal pain. 1. Fever of unknown origin. No source of infection currently identified. UA negative for infection. Urine culture and blood cultures pending. Chest x-ray per radiologist shows no active disease. Bilateral lower extremity venous Dopplers negative for DVT. Follow-up pro-calcitonin. ID consulted, follow-up recommendations. We'll need to start antibiotics if patient spikes a fever again. 2. Type 2 diabetes with hyperglycemia. Hyperglycemia may be secondary to infection. Patient has not taken his metformin in 2 days secondary to recent MRI and contrast. We'll place on insulin sliding scale. Monitor Accu-Cheks. 3. Abdominal pain. May be secondary to cancer. Abdominal MRI on 01/06/2018. Etiology showed heterogeneous hepatic parenchyma with innumerable focal hepatic lesions consistent with known metastatic disease. Abdominal ultrasound per radiologist shows unremarkable abdominal sonogram. We'll place on morphine for pain management. 4. Stage IV colon cancer metastatic to the liver. Patient's oncologist Dr. Rodriguez consulted, follow-up recommendations. Patient has been off of chemotherapy recently secondary to upcoming procedure. 5. Lower extremity pain. Patient did not complain of this during my exam. Bilateral lower extremity venous Dopplers are negative for DVT. 6. DVT prophylaxis. Heparin Case was discussed in detail with the patient regarding current diagnosis and treatment plan.
[2018-01-08 17:04] LABS: INR 1.21; PARTIAL THROMBOPLASTIN TIME 29.4 Seconds (25.1-36.5); PROTHROMBIN TIME 13.8 SECONDS (9.4-12.5)
[2018-01-08] MEDS: Insulin Reg-LOW-Coverage SC SCH ×2 (17:14→21:37)
[2018-01-08] MEDS: Sodium Chloride 0.9% 1,000 ML IV SCH (17:15)
[2018-01-09] MEDS: Sodium Chloride 0.9% 1,000 ML IV SCH ×2 (05:01→23:07)
--- NOTE | 2018-01-09 05:11 | CARD ---
APPROVED REPORT Date of service: 01/08/2018 EKG Measurement Heart [id number] <Conclusion> Normal sinus rhythm Left axis deviation Minimal voltage criteria for LVH, may be normal variant Abnormal ECG
[2018-01-09 07:15] LABS: ALBUMIN 3.8 g/dL (3.0-4.8); ALT/SGPT 67 U/L (7-56); AST/SGOT 104 U/L (17-59); BLOOD UREA NITROGEN 20 mg/dL (7-21); CALCIUM 8.9 mg/dL (8.4-10.5); GFR NON-AFRICAN AMERICAN > 60
[2018-01-09 07:16] LABS: BASO # 0.01 K/mm3 (0.0-2.0); BASO % 0.1 % (0.0-3.0); EOS % 0.3 % (1.5-5.0); GRAN # 6.39 (1.4-6.5); GRAN % 71.3 % (50.0-68.0); LYMPH # 1.2 (1.2-3.4); LYMPH % 13.5 % (22.0-35.0); MEAN CELL VOLUME 87.2 fl (80.0-105.0); MEAN CORPUSCULAR HEMOGLOBIN 30.2 pg (25.0-35.0); MEAN CORPUSCULAR HGB CONC 34.7 g/dl (31.0-37.0); MEAN PLATELET VOLUME 9.7 fl (7.0-11.0); MONO # 1.3 (0.1-0.6); MONO % 14.8 % (1.0-6.0); RBC 4.3 10^6/uL (3.5-6.1); RED CELL DISTRIBUTION WIDTH 13.2 % (11.5-14.5)
[2018-01-09] MEDS: Insulin Reg-LOW-Coverage SC SCH ×4 (08:52→21:46)
[2018-01-09] MEDS: Lactobacillus Acidophilus 500 MU Cap PO SCH ×2 (09:27→17:05)
[2018-01-09] MEDS: Cefepime 1gm in NS 100ml 1 GM/100 ML BAG IVPB SCH ×3 (09:28→21:47)
[2018-01-09] MEDS: Morphine 2 mg/ml ISec IVP PRN (09:28)
--- NOTE | 2018-01-09 16:02 | CP.PCM.PN ---
<Tab Castro - Last Filed: 01/09/18 15:56> Subjective - Date & Time of Evaluation Date of Evaluation: 01/09/18 Time of Evaluation: 15:56 - Subjective Subjective: Tab Castro, PGY-1 Progress Note for Hospitalist Service Patient seen and examined at bedside this morning. Febrile overnight with Tmax of 102.2 with unknown infectious source; start cefipime today. Admits to sleeping well and poor appetite. Denies BM since yesterday. Given colace. Morphine prn. No other new complaints at this time. Objective - Vital Signs/Intake and Output Vital Signs (last 24 hours): Temp Pulse Resp BP Pulse Ox 99.3 F 86 19 153/97 H 97 01/09/18 09:27 01/09/18 07:00 01/09/18 07:00 01/09/18 07:00 01/09/18 07:00 - Medications Medications: Current Medications Acetaminophen (Tylenol 325mg Tab) 650 mg PO Q6H PRN PRN Reason: Fever >100.4 F Last Admin: 01/08/18 20:20 Dose: 650 mg Acetaminophen (Tylenol 325mg Tab) 650 mg PO Q6H PRN PRN Reason: Headache Last Admin: 01/09/18 09:27 Dose: 650 mg Acetaminophen (Tylenol 325mg Tab) 650 mg PO Q6H PRN PRN Reason: Pain, Mild (1-3) Last Admin: 01/09/18 14:47 Dose: 650 mg Docusate Sodium (Colace) 100 mg PO BID PRN PRN Reason: Constipation Heparin Sodium (Porcine) (Heparin) 5,000 units SC Q8 ROGER PRN Reason: Protocol Last Admin: 01/09/18 14:39 Dose: 5,000 units Sodium Chloride (Sodium Chloride 0.9%) 1,000 mls @ 75 mls/hr IV .[id number] ROGER Last Admin: 01/09/18 05:01 Dose: 75 mls/hr Cefepime HCl (Maxipime 1gm) 1 gm in 100 mls @ 100 mls/hr IVPB Q8 ROGER PRN Reason: Protocol Last Admin: 01/09/18 14:39 Dose: 100 mls/hr Insulin Human Regular (Humulin R Low) 0 units SC ACHS ROGER PRN Reason: Protocol Last Admin: 01/09/18 12:06 Dose: 7 unit Lactobacillus Acidophilus (Bacid Acidophilus) 1 cap PO BID ROGER Last Admin: 01/09/18 09:27 Dose: 1 cap Morphine Sulfate (Morphine) 2 mg IVP Q4H PRN PRN Reason: Pain, severe (8-10) Last Admin: 01/09/18 09:28 Dose: 2 mg Ondansetron HCl (Zofran Inj) 4 mg IVP Q6H PRN PRN Reason: Nausea/Vomiting - Labs Labs: PT 13.8 SECONDS (9.4-12.5) H 01/08/18 16:48 INR 1.21 01/08/18 16:48 APTT 29.4 Seconds (25.1-36.5) 01/08/18 16:48 - Constitutional Appears: No Acute Distress - Head Exam Head Exam: ATRAUMATIC, NORMOCEPHALIC - Eye Exam Eye Exam: EOMI Pupil Exam: PERRL - ENT Exam ENT Exam: Mucous Membranes Moist - Respiratory Exam Respiratory Exam: Clear to Ausculation Bilateral. absent: Respiratory Distress - Cardiovascular Exam Cardiovascular Exam: REGULAR RHYTHM, +S1, +S2 - GI/Abdominal Exam GI & Abdominal Exam: Normal Bowel Sounds. absent: Guarding, Rigid - Extremities Exam Extremities Exam: Normal Inspection. absent: Calf Tenderness - Back Exam Back Exam: NORMAL INSPECTION - Neurological Exam Neurological Exam: Alert, Awake, Oriented x3 - Skin Skin Exam: Normal Color, Warm Assessment and Plan - Assessment and Plan (Free Text) Assessment: 57M, PMH of metastatic colon cancer to the liver and DM, presents to the ED with right sided abdominal pain 2 weeks after a laparascopic liver mapping procedure done by IR. Patient scheduled for Liver Directed Therapy 01/14/[address] Maria. Plan: Metastatic Colon Cancer -stage IV colon cancer with metastasis to the liver -Scheduled Liver Directed Therapy by Dr. Maria next week -on chemotherapy -Abdomen MRI on 01/06 showed heterogenous hepatic parenchyma with innumerable focal hepatic lesions consistent with metastases -Abdominal US on 01/08 was unremarkable -Liver CT on 01/04 showed metastatic disease similar to previous exam -Morphine 2mg IV Q4 PRN -Zofran 4mg Q4 IV PRN -NS@75 -Dr. Rodriguez, oncologist on consult Fever of unknown etiology -Patient had temperature of 100.5 on admission -Tmax of 102.2 overnight -procalcitonin elevated at 0.62 -Started on cefipime -Tylenol if fevers present -blood culture no growth after 24 hours -urine culture no growth -U/A showed moderate blood with few bacteria -Infectious Disease, Dr. Khalil consulted Transaminitis -AST/ALT: 104/67 today from -alk phos elevated at 151 and Tbili of 1.4 -consider liver metastasis etiology -will monitor Lower Extremity Pain/Tenderness -Lower extremity US negative -history of cancer, patient is in hypercoaguable state -Started on PPX Heparin -Will continue to monitor DM 2 -350 on admission, 414 today -ISS-low -Accuchecks -diabetic diet -Will continue to monitor PPX with heparin Patient seen and case discussed and reviewed with Dr. Saldana <Vandana Saldana R - Last Filed: 01/10/18 11:29> Objective - Vital Signs/Intake and Output Vital Signs (last 24 hours): Temp Pulse Resp BP Pulse Ox 99.5 F 77 22 166/92 H 100 01/10/18 06:00 01/10/18 06:00 01/10/18 06:00 01/10/18 06:00 01/10/18 06:00 Intake and Output: 01/10/18 01/10/18 06:59 18:59 Intake Total 300 Balance 300 - Medications Medications: Current Medications Acetaminophen (Tylenol 325mg Tab) 650 mg PO Q6H PRN PRN Reason: Fever >100.4 F Last Admin: 01/08/18 20:20 Dose: 650 mg Acetaminophen (Tylenol 325mg Tab) 650 mg PO Q6H PRN PRN Reason: Headache Last Admin: 01/10/18 05:30 Dose: 650 mg Acetaminophen (Tylenol 325mg Tab) 650 mg PO Q6H PRN PRN Reason: Pain, Mild (1-3) Last Admin: 01/09/18 14:47 Dose: 650 mg Docusate Sodium (Colace) 100 mg PO BID PRN PRN Reason: Constipation Heparin Sodium (Porcine) (Heparin) 5,000 units SC Q8 ROGER PRN Reason: Protocol Last Admin: 01/10/18 05:26 Dose: 5,000 units Sodium Chloride (Sodium Chloride 0.9%) 1,000 mls @ 75 mls/hr IV .[id number] [facility] Last Admin: 01/09/18 23:07 Dose: 75 mls/hr Cefepime HCl (Maxipime 1gm) 1 gm in 100 mls @ 100 mls/hr IVPB Q8 ROGER PRN Reason: Protocol Last Admin: 01/10/18 05:27 Dose: 100 mls/hr Insulin Human Regular (Humulin R Low) 0 units SC ACHS ROGER PRN Reason: Protocol Last Admin: 01/10/18 09:06 Dose: Not Given Lactobacillus Acidophilus (Bacid Acidophilus) 1 cap PO BID ROGER Last Admin: 01/10/18 09:06 Dose: 1 cap Morphine Sulfate (Morphine) 2 mg IVP Q4H PRN PRN Reason: Pain, severe (8-10) Last Admin: 01/10/18 05:28 Dose: 2 mg Ondansetron HCl (Zofran Inj) 4 mg IVP Q6H PRN PRN Reason: Nausea/Vomiting - Labs Labs: 01/10/18 06:30 01/10/18 06:30 PT 13.8 SECONDS (9.4-12.5) H 01/08/18 16:48 INR 1.21 01/08/18 16:48 APTT 29.4 Seconds (25.1-36.5) 01/08/18 16:48 Attending/Attestation - Attestation I have personally seen and examined this patient.: Yes I have fully participated in the care of the patient.: Yes I have reviewed all pertinent clinical information, including history, physical exam and plan: Yes Notes (Text): Patient seen and examined by me at 10AM with resident 01/09/18. Case including HPI , physical exam, and assessment and plan discussed with resident. Agree with above with following additions/corrections. Patient states he is feeling okay today. States he is having a headache. Abdominal pain has improved with pain medications. No dizziness. Patient is having fevers and chills. No nausea or vomiting. Patient states he did eat a little. No chest pain or shortness of breath. No dysuria. No diarrhea or constipation. Physical exam: General: Awake and alert lying in bed in no acute distress HEENT: Normocephalic atraumatic. Pupils equal reactive. Extraocular muscles intact. No scleral icterus. Oropharynx is pink and moist. No pharyngeal erythema or exudate appreciated. Neck is supple. Cardiovascular: Normal rhythm. Normal S1, S2. No murmurs, rubs, or gallops appreciated Pulmonary: Normal respiratory effort. No rhonchi, rales or wheezing appreciated. Gastrointestinal: Soft, nondistended. Positive right sided tenderness with palpation. Positive bowel sounds all 4 quadrants, no guarding. Musculoskeletal: Normal range of motion all extremities. No calf tenderness. No edema appreciated. Central nervous system: AAOx3. CN2-12 grossly intact. Dermatologic: Skin warm and dry Assessment and plan: Patient is a 57-year-old male with past medical history significant for stage IV colon cancer with metastases to the liver and type 2 diabetes that presented to the emergency room with right-sided abdominal pain. 1. Fever of unknown origin. No source of infection currently identified. UA negative for infection. Urine culture and blood cultures negative so far. Procalcitonin elevated. Started on cefepime. Chest x-ray per radiologist shows no active disease. Bilateral lower extremity venous Dopplers negative for DVT. ID consulted, recommendations appreciated. 2. Type 2 diabetes with hyperglycemia. Hyperglycemia may be secondary to infection. Continue insulin sliding scale. Continue to monitor Accu-Cheks. 3. Abdominal pain. May be secondary to cancer. Improved with pain medications. Abdominal MRI on 01/06/2018. Etiology showed heterogeneous hepatic parenchyma with innumerable focal hepatic lesions consistent with known metastatic disease. Abdominal ultrasound per radiologist shows unremarkable abdominal sonogram. 4. Stage IV colon cancer metastatic to the liver. Patient's oncologist Dr. Rodriguez consulted, follow-up recommendations. Patient has been off of chemotherapy recently secondary to upcoming procedure. 5. Lower extremity pain. Bilateral lower extremity venous Dopplers are negative for DVT. 6. DVT prophylaxis. Heparin Case was discussed in detail with the patient regarding current diagnosis and treatment plan.
--- NOTE | 2018-01-09 18:02 | CP.PCM.CON ---
History of Present Illness - History of Present Illness History of Present Illness: Infectious Disease Consultation: January 09, 2018 57 yo male with PMHx of olon cancer with metastasis to the liver and DM, presents to the ED with the complaint of progressively worsening right sided abdominal pain. Patient had a liver mapping procedure done by interventional radiology 2 weeks ago. Abdominal pain started 4 days ago which he rated as a 6/ 10 initially. Pain level escalated to 10/10 which is why he came to [facility] now. He was off chemotherapy as he was supposed to see Dr. Jean-Paul Maria for a liver procedure. Fevers up to 102.2 F today. Cefepime started for antibiotic treatment. PMHx: Colorectal Cancer with metastasis, DM PSHx: Liver mapping procedure Family Hx: mother- in hospital (unknown reason); father , had DM Allergies: NKDA Active Medications Acetaminophen (Tylenol 325mg Tab) 650 mg PO Q6H PRN PRN Reason: Fever >100.4 F Last Admin: 01/08/18 20:20 Dose: 650 mg Acetaminophen (Tylenol 325mg Tab) 650 mg PO Q6H PRN PRN Reason: Headache Last Admin: 01/09/18 09:27 Dose: 650 mg Acetaminophen (Tylenol 325mg Tab) 650 mg PO Q6H PRN PRN Reason: Pain, Mild (1-3) Last Admin: 01/09/18 14:47 Dose: 650 mg Docusate Sodium (Colace) 100 mg PO BID PRN PRN Reason: Constipation Heparin Sodium (Porcine) (Heparin) 5,000 units SC Q8 ROGER PRN Reason: Protocol Last Admin: 01/09/18 14:39 Dose: 5,000 units Sodium Chloride (Sodium Chloride 0.9%) 1,000 mls @ 75 mls/hr IV .[id number] COUNTS INCLUDE 234 BEDS AT THE [facility] Last Admin: 01/09/18 05:01 Dose: 75 mls/hr Cefepime HCl (Maxipime 1gm) 1 gm in 100 mls @ 100 mls/hr IVPB Q8 ROGER PRN Reason: Protocol Last Admin: 01/09/18 14:39 Dose: 100 mls/hr Insulin Human Regular (Humulin R Low) 0 units SC ACHS ROGER PRN Reason: Protocol Last Admin: 01/09/18 17:05 Dose: 2 unit Lactobacillus Acidophilus (Bacid Acidophilus) 1 cap PO BID ROGER Last Admin: 01/09/18 17:05 Dose: 1 cap Morphine Sulfate (Morphine) 2 mg IVP Q4H PRN PRN Reason: Pain, severe (8-10) Last Admin: 01/09/18 09:28 Dose: 2 mg Ondansetron HCl (Zofran Inj) 4 mg IVP Q6H PRN PRN Reason: Nausea/Vomiting Social Hx: Denies Tobacco use, Admits to prior social EtOH use, denies illicit drug use. Not currently working. ROS: abdominal pain, fevers No chest pain, melena, hematuria, hematemesis, hematochezia, depression, anxiety , diarrhea, vision loss, hearing loss, loss of consciousness. Past Patient History - Infectious Disease Hx of Infectious Diseases: None - Past Social History Smoking Status: Never Smoked - CARDIAC Hx Cardiac Disorders: No Hx Pacemaker: No - PULMONARY Hx Respiratory Disorders: No - NEUROLOGICAL Hx Neurological Disorder: No Hx Paralysis: No - HEENT Hx HEENT Problems: No - RENAL Hx Chronic Kidney Disease: No - ENDOCRINE/METABOLIC Hx Diabetes Mellitus Type 2: Yes - HEMATOLOGICAL/ONCOLOGICAL Hx Blood Disorders: No Hx Blood Transfusions: No - INTEGUMENTARY Hx Dermatological Problems: No - MUSCULOSKELETAL/RHEUMATOLOGICAL Hx Musculoskeletal Disorders: Yes (right shoulder; tear) - GASTROINTESTINAL Other/Comment: colon cancer with mets - PSYCHIATRIC Hx Psychophysiologic Disorder: No Hx Emotional Abuse: No Hx Physical Abuse: No Hx Substance Use: No - SURGICAL HISTORY Other/Comment: 12/2017 "camera through groin to look at liver" - ANESTHESIA Hx Anesthesia: Yes Hx Anesthesia Reactions: No Hx Malignant Hyperthermia: No Meds Allergies/Adverse Reactions: Allergies Allergy/AdvReac Type Severity Reaction Status Date / Time No Known Allergies Allergy Verified 10/30/17 18:26 - Medications Medications: Current Medications Acetaminophen (Tylenol 325mg Tab) 650 mg PO Q6H PRN PRN Reason: Fever >100.4 F Last Admin: 01/08/18 20:20 Dose: 650 mg Acetaminophen (Tylenol 325mg Tab) 650 mg PO Q6H PRN PRN Reason: Headache Last Admin: 01/09/18 09:27 Dose: 650 mg Acetaminophen (Tylenol 325mg Tab) 650 mg PO Q6H PRN PRN Reason: Pain, Mild (1-3) Last Admin: 01/09/18 14:47 Dose: 650 mg Docusate Sodium (Colace) 100 mg PO BID PRN PRN Reason: Constipation Heparin Sodium (Porcine) (Heparin) 5,000 units SC Q8 ROGER PRN Reason: Protocol Last Admin: 01/09/18 14:39 Dose: 5,000 units Sodium Chloride (Sodium Chloride 0.9%) 1,000 mls @ 75 mls/hr IV .[id number] COUNTS INCLUDE 234 BEDS AT THE [facility] Last Admin: 01/09/18 05:01 Dose: 75 mls/hr Cefepime HCl (Maxipime 1gm) 1 gm in 100 mls @ 100 mls/hr IVPB Q8 ROGER PRN Reason: Protocol Last Admin: 01/09/18 14:39 Dose: 100 mls/hr Insulin Human Regular (Humulin R Low) 0 units SC ACHS COUNTS INCLUDE 234 BEDS AT THE [facility] PRN Reason: Protocol Last Admin: 01/09/18 17:05 Dose: 2 unit Lactobacillus Acidophilus (Bacid Acidophilus) 1 cap PO BID COUNTS INCLUDE 234 BEDS AT THE [facility] Last Admin: 01/09/18 17:05 Dose: 1 cap Morphine Sulfate (Morphine) 2 mg IVP Q4H PRN PRN Reason: Pain, severe (8-10) Last Admin: 01/09/18 09:28 Dose: 2 mg Ondansetron HCl (Zofran Inj) 4 mg IVP Q6H PRN PRN Reason: Nausea/Vomiting Physical Exam - Constitutional Appears: Non-toxic, No Acute Distress, Chronically Ill - Head Exam Head Exam: ATRAUMATIC, NORMOCEPHALIC - Eye Exam Eye Exam: EOMI, PERRL Pupil Exam: NORMAL ACCOMODATION, PERRL - ENT Exam ENT Exam: Mucous Membranes Moist, Normal External Ear Exam, TM's Normal Bilaterally - Neck Exam Neck exam: Positive for: Full Rom, Normal Inspection - Respiratory Exam Respiratory Exam: Clear to Auscultation Bilateral, NORMAL BREATHING PATTERN. absent: Rales, Rhonchi, Wheezes - Cardiovascular Exam Cardiovascular Exam: REGULAR RHYTHM, RRR, +S1, +S2 - GI/Abdominal Exam GI & Abdominal Exam: Normal Bowel Sounds, Soft, Tenderness. absent: Distended - Extremities Exam Extremities exam: Positive for: full ROM, normal inspection - Neurological Exam Neurological exam: Alert, CN II-XII Intact, Oriented x3 - Psychiatric Exam Psychiatric exam: Normal Affect, Normal Mood - Skin Skin Exam: Dry, Intact, Normal Color, Warm Results - Vital Signs Recent Vital Signs: Last Vital Signs Temp 99.3 F 01/09/18 09:27 Pulse 86 01/09/18 07:00 Resp 19 01/09/18 07:00 BP 153/97 H 01/09/18 07:00 Pulse Ox 97 01/09/18 07:00 - Labs Result Diagrams: 01/09/18 06:30 01/09/18 06:30 Labs: Laboratory Results - last 24 hr 01/09/18 01/09/18 01/09/18 11:39 14:17 16:34 POC Glucose (mg/dL) 414 H* 340 H 239 H Assessment & Plan - Assessment and Plan (Free Text) Assessment: 57 yo Male, PMHx of metastatic colon cancer (Stage IV) to the liver and DM, presents to the ED with right sided abdominal pain 2 weeks after a laproscopic liver mapping procedure done by IR. In ED patient given morphine and zofran that resolved the symptoms. However fevers up to 102.2 F today. Cultures sent on admission. So far no growth within 24 hours. Check Procalcitonin levels. On Cefepime. No obvious source for the fever. Abdominal pain persistent - secondary to colon cancer? No leukocytosis. Supportive care. Await final culture results. Thank you for allowing me to participate in the care of the patient, we will follow with you.
[2018-01-10] MEDS: Cefepime 1gm in NS 100ml 1 GM/100 ML BAG IVPB SCH ×3 (05:27→22:27)
[2018-01-10] MEDS: Morphine 2 mg/ml ISec IVP PRN ×2 (05:28→16:27)
[2018-01-10 07:19] LABS: BASO # 0.01 K/mm3 (0.0-2.0); BASO % 0.1 % (0.0-3.0); EOS # 0.1 (0.0-0.7); GRAN # 6.47 (1.4-6.5); GRAN % 67.3 % (50.0-68.0); HEMOGLOBIN 12.5 g/dL (14.0-18.0); LYMPH # 1.8 (1.2-3.4); LYMPH % 18.8 % (22.0-35.0); MEAN CELL VOLUME 86.5 fl (80.0-105.0); MEAN CORPUSCULAR HEMOGLOBIN 30.6 pg (25.0-35.0); MEAN CORPUSCULAR HGB CONC 35.4 g/dl (31.0-37.0); MEAN PLATELET VOLUME 9.6 fl (7.0-11.0); MONO # 1.2 (0.1-0.6); MONO % 12.8 % (1.0-6.0); RBC 4.08 10^6/uL (3.5-6.1); WHITE BLOOD COUNT 9.6 10^3/ul (4.5-11.0)
[2018-01-10 07:40] LABS: ALBUMIN 3.8 g/dL (3.0-4.8); ALT/SGPT 64 U/L (7-56); AST/SGOT 73 U/L (17-59); BLOOD UREA NITROGEN 16 mg/dL (7-21); CALCIUM 8.9 mg/dL (8.4-10.5); GFR NON-AFRICAN AMERICAN > 60
[2018-01-10] MEDS: Insulin Reg-LOW-Coverage SC SCH ×4 (09:06→22:22)
[2018-01-10] MEDS: Lactobacillus Acidophilus 500 MU Cap PO SCH ×2 (09:06→18:51)
--- NOTE | 2018-01-10 12:23 | CT ---
Date of service: 01/10/2018 PROCEDURE: CT HEAD WITHOUT CONTRAST. HISTORY: headache,fever COMPARISON: None available. TECHNIQUE: Axial computed tomography images were obtained through the head/brain without intravenous contrast. Radiation dose: Total exam DLP = 800.04 mGy-cm. This CT exam was performed using one or more of the following dose reduction techniques: Automated exposure control, adjustment of the mA and/or kV according to patient size, and/or use of iterative reconstruction technique. FINDINGS: HEMORRHAGE: No intracranial hemorrhage. BRAIN: No mass effect or edema. The lord-white matter differentiation appears intact. Please note that MRI with diffusion imaging is more sensitive in the detection of acute ischemic event. VENTRICLES: No hydrocephalus. CALVARIUM: Unremarkable. PARANASAL SINUSES: Unremarkable as visualized. No significant inflammatory changes. MASTOID AIR CELLS: Unremarkable as visualized. No inflammatory changes. OTHER FINDINGS: None. IMPRESSION: No acute intracranial pathology identified.
[2018-01-10] MEDS: Sodium Chloride 0.9% 1,000 ML IV SCH (15:15)
[2018-01-10 16:35] VITALS: RESP 20
--- NOTE | 2018-01-10 16:59 | CP.PCM.PN ---
Subjective - Date & Time of Evaluation Date of Evaluation: 01/10/18 Time of Evaluation: 15:45 - Subjective Subjective: Infectious Disease Follow Up: January 10, 2018 57 yo male with PMHx of olon cancer with metastasis to the liver and DM, presents to the ED with the complaint of progressively worsening right sided abdominal pain. Patient had a liver mapping procedure done by interventional radiology 2 weeks ago. Abdominal pain started 4 days ago which he rated as a 6/ 10 initially. Pain level escalated to 10/10 which is why he came to [facility] [place]. He was off chemotherapy as he was supposed to see Dr. Jean-Paul Maria for a liver procedure. Afebrile even though temperature did get up to 100.0 F. Cefepime started for antibiotic treatment. No growth on cultures. The patient states that he feels better. Objective - Vital Signs/Intake and Output Vital Signs (last 24 hours): Temp Pulse Resp BP Pulse Ox 99.0 F 81 20 141/80 100 01/10/18 16:35 01/10/18 16:35 01/10/18 16:35 01/10/18 16:35 01/10/18 16:35 Intake and Output: 01/10/18 01/10/18 06:59 18:59 Intake Total 300 Balance 300 - Medications Medications: Current Medications Acetaminophen (Tylenol 325mg Tab) 650 mg PO Q6H PRN PRN Reason: Fever >100.4 F Last Admin: 01/08/18 20:20 Dose: 650 mg Acetaminophen (Tylenol 325mg Tab) 650 mg PO Q6H PRN PRN Reason: Headache Last Admin: 01/10/18 05:30 Dose: 650 mg Acetaminophen (Tylenol 325mg Tab) 650 mg PO Q6H PRN PRN Reason: Pain, Mild (1-3) Last Admin: 01/09/18 14:47 Dose: 650 mg Docusate Sodium (Colace) 100 mg PO BID PRN PRN Reason: Constipation Heparin Sodium (Porcine) (Heparin) 5,000 units SC Q8 ROGER PRN Reason: Protocol Last Admin: 01/10/18 15:09 Dose: 5,000 units Sodium Chloride (Sodium Chloride 0.9%) 1,000 mls @ 75 mls/hr [id number] Last Admin: 01/10/18 15:15 Dose: 75 mls/hr Cefepime HCl (Maxipime 1gm) 1 gm in 100 mls @ 100 mls/hr IVPB Q8 ROGER PRN Reason: Protocol Last Admin: 01/10/18 15:09 Dose: 100 mls/hr Insulin Human Regular (Humulin R Low) 0 units SC ACHS ROGER PRN Reason: Protocol Last Admin: 01/10/18 13:00 Dose: 3 unit Lactobacillus Acidophilus (Bacid Acidophilus) 1 cap PO BID ROGER Last Admin: 01/10/18 09:06 Dose: 1 cap Morphine Sulfate (Morphine) 2 mg IVP Q4H PRN PRN Reason: Pain, severe (8-10) Last Admin: 01/10/18 16:27 Dose: 2 mg Ondansetron HCl (Zofran Inj) 4 mg IVP Q6H PRN PRN Reason: Nausea/Vomiting - Labs Labs: 01/10/18 06:30 01/10/18 06:30 PT 13.8 SECONDS (9.4-12.5) H 01/08/18 16:48 INR 1.21 01/08/18 16:48 APTT 29.4 Seconds (25.1-36.5) 01/08/18 16:48 - Constitutional Appears: Non-toxic, No Acute Distress, Chronically Ill - Head Exam Head Exam: ATRAUMATIC, NORMOCEPHALIC - Eye Exam Eye Exam: EOMI, PERRL Pupil Exam: NORMAL ACCOMODATION, PERRL - ENT Exam ENT Exam: Mucous Membranes Moist, Normal External Ear Exam, TM's Normal Bilaterally - Neck Exam Neck Exam: Full ROM, Normal Inspection - Respiratory Exam Respiratory Exam: Clear to Ausculation Bilateral, NORMAL BREATHING PATTERN. absent: Rales, Rhonchi, Wheezes - Cardiovascular Exam Cardiovascular Exam: REGULAR RHYTHM, RRR, +S1, +S2 - GI/Abdominal Exam GI & Abdominal Exam: Soft, Normal Bowel Sounds. absent: Distended, Tenderness - Extremities Exam Extremities Exam: Full ROM, Normal Inspection - Neurological Exam Neurological Exam: Alert, Awake, CN II-XII Intact, Oriented x3 - Psychiatric Exam Psychiatric exam: Normal Affect, Normal Mood - Skin Skin Exam: Dry, Intact, Normal Color, Warm Assessment and Plan - Assessment and Plan (Free Text) Assessment: 57 yo Male, PMHx of metastatic colon cancer (Stage IV) to the liver and DM, presents to the ED with right sided abdominal pain 2 weeks after a laproscopic liver mapping procedure done by IR. In ED patient given morphine and zofran that resolved the symptoms. However fevers up to 102.2 F earlier in admission. Cultures sent on admission. So far no growth within 24 hours. Check Procalcitonin levels... initial check was 0.62. Recheck procalcitonin. On Cefepime. No obvious source for the fever. Abdominal pain persistent - secondary to colon cancer? No leukocytosis. Supportive care. Await final culture results. So far no growth. No further fevers for the past 48 hours. Thank you for allowing me to participate in the care of the patient, we will follow with you.
--- NOTE | 2018-01-10 17:24 | CP.PCM.PN ---
<Tab Castro - Last Filed: 01/10/18 17:21> Subjective - Date & Time of Evaluation Date of Evaluation: 01/10/18 Time of Evaluation: 17:21 - Subjective Subjective: Tab Castro, PGY-1 Progress Note for Hospitalist Service Patient seen and examined at bedside this morning. No acute events overnight. Tmax of [address] ordered. Scheduled for liver chemo procedure later this week. Admits to headache that is improved with tylenol. Abdominal pain improved today. No new complaints. Objective - Vital Signs/Intake and Output Vital Signs (last 24 hours): Temp Pulse Resp BP Pulse Ox 99.0 F 81 20 141/80 100 01/10/18 16:35 01/10/18 16:35 01/10/18 16:35 01/10/18 16:35 01/10/18 16:35 Intake and Output: 01/10/18 01/10/18 06:59 18:59 Intake Total 300 Balance 300 - Medications Medications: Current Medications Acetaminophen (Tylenol 325mg Tab) 650 mg PO Q6H PRN PRN Reason: Fever >100.4 F Last Admin: 01/08/18 20:20 Dose: 650 mg Acetaminophen (Tylenol 325mg Tab) 650 mg PO Q6H PRN PRN Reason: Headache Last Admin: 01/10/18 05:30 Dose: 650 mg Acetaminophen (Tylenol 325mg Tab) 650 mg PO Q6H PRN PRN Reason: Pain, Mild (1-3) Last Admin: 01/09/18 14:47 Dose: 650 mg Docusate Sodium (Colace) 100 mg PO BID PRN PRN Reason: Constipation Heparin Sodium (Porcine) (Heparin) 5,000 units SC Q8 ROGER PRN Reason: Protocol Last Admin: 01/10/18 15:09 Dose: 5,000 units Sodium Chloride (Sodium Chloride 0.9%) 1,000 mls @ 75 mls/hr IV .[id number] [facility] Last Admin: 01/10/18 15:15 Dose: 75 mls/hr Cefepime HCl (Maxipime 1gm) 1 gm in 100 mls @ 100 mls/hr IVPB Q8 ROGER PRN Reason: Protocol Last Admin: 01/10/18 15:09 Dose: 100 mls/hr Insulin Human Regular (Humulin R Low) 0 units SC ACHS ROGER PRN Reason: Protocol Last Admin: 01/10/18 13:00 Dose: 3 unit Lactobacillus Acidophilus (Bacid Acidophilus) 1 cap PO BID ROGER Last Admin: 01/10/18 09:06 Dose: 1 cap Morphine Sulfate (Morphine) 2 mg IVP Q4H PRN PRN Reason: Pain, severe (8-10) Last Admin: 01/10/18 16:27 Dose: 2 mg Ondansetron HCl (Zofran Inj) 4 mg IVP Q6H PRN PRN Reason: Nausea/Vomiting - Labs Labs: 01/10/18 06:30 01/10/18 06:30 PT 13.8 SECONDS (9.4-12.5) H 01/08/18 16:48 INR 1.21 01/08/18 16:48 APTT 29.4 Seconds (25.1-36.5) 01/08/18 16:48 - Constitutional Appears: No Acute Distress - Head Exam Head Exam: ATRAUMATIC, NORMAL INSPECTION - Eye Exam Eye Exam: EOMI Pupil Exam: PERRL - ENT Exam ENT Exam: Mucous Membranes Moist - Respiratory Exam Respiratory Exam: Clear to Ausculation Bilateral. absent: Wheezes, Respiratory Distress - Cardiovascular Exam Cardiovascular Exam: REGULAR RHYTHM, +S1, +S2 - GI/Abdominal Exam GI & Abdominal Exam: Normal Bowel Sounds. absent: Guarding, Rigid Additional comments: right sided tenderness appreciated - Extremities Exam Extremities Exam: Normal Inspection. absent: Calf Tenderness - Neurological Exam Neurological Exam: Alert, Awake, Oriented x3 - Skin Skin Exam: Normal Color, Warm Assessment and Plan - Assessment and Plan (Free Text) Assessment: 57M, PMH of metastatic colon cancer to the liver and DM, presents to the ED with right sided abdominal pain 2 weeks after a laparascopic liver mapping procedure done by IR. Patient scheduled for Liver Directed Therapy 01/14/[address] Maria. ID following, if febrile tonight, will escalate antibiotics. Head CT ordered for headache. Plan: Metastatic Colon Cancer -stage IV colon cancer with metastasis to the liver -Scheduled Liver Directed Therapy by Dr. Maria this week -will need to be afebrile for procedure -on chemotherapy -Abdomen MRI on 01/06 showed heterogenous hepatic parenchyma with innumerable focal hepatic lesions consistent with metastases -Abdominal US on 01/08 was unremarkable -Liver CT on 01/04 showed metastatic disease similar to previous exam -Morphine 2mg IV Q4 PRN -Zofran 4mg Q4 IV PRN -NS@75 -Dr. Rodriguez, oncologist on consult Fever of unknown etiology -Head CT today showed no acute findings -headache improved with tylenol -Patient had temperature of 100.5 on admission -Tmax of 100 overnight -procalcitonin elevated at 0.62 previously -cefipime day 2 -Tylenol if fevers present -blood culture no growth after 48 hours -urine culture no growth -U/A showed moderate blood with few bacteria -Per ID, if fevers persist, may escalate antibiotics -Infectious Disease, Dr. Khalil consulted Transaminitis -AST/ALT: today is 73/64 from 104/67 yesterday -T Bili WNL limits today -alk phos elevated at 172 from 151 yesterday -consider liver metastasis etiology -will monitor Lower Extremity Pain/Tenderness -Lower extremity US negative -history of cancer, patient is in hypercoaguable state -Started on PPX Heparin -Will continue to monitor DM 2 -350 on admission, 272 today -ISS-low -Accuchecks -diabetic diet -Will continue to monitor PPX with heparin Patient seen and case discussed and reviewed with Dr. Saldana <Vandana Saldana - Last Filed: 01/11/18 10:53> Objective - Vital Signs/Intake and Output Vital Signs (last 24 hours): Temp Pulse Resp BP Pulse Ox 98.3 F 70 20 157/92 H 98 01/11/18 08:49 01/11/18 08:49 01/11/18 08:49 01/11/18 08:49 01/11/18 08:49 Intake and Output: 01/11/18 01/11/18 06:59 18:59 Intake Total 1005 Output Total 500 Balance 505 - Medications Medications: Current Medications Acetaminophen (Tylenol 325mg Tab) 650 mg PO Q6H PRN PRN Reason: Fever >100.4 F Last Admin: 01/08/18 20:20 Dose: 650 mg Acetaminophen (Tylenol 325mg Tab) 650 mg PO Q6H PRN PRN Reason: Headache Last Admin: 01/11/18 08:49 Dose: 650 mg Acetaminophen (Tylenol 325mg Tab) 650 mg PO Q6H PRN PRN Reason: Pain, Mild (1-3) Last Admin: 01/09/18 14:47 Dose: 650 mg Docusate Sodium (Colace) 100 mg PO BID PRN PRN Reason: Constipation Heparin Sodium (Porcine) (Heparin) 5,000 units SC Q8 ROGER PRN Reason: Protocol Last Admin: 01/11/18 05:21 Dose: 5,000 units Sodium Chloride (Sodium Chloride 0.9%) 1,000 mls @ 75 mls/hr IV .[id number] ROGER Last Admin: 01/10/18 15:15 Dose: 75 mls/hr Cefepime HCl (Maxipime 1gm) 1 gm in 100 mls @ 100 mls/hr IVPB Q8 ROGER PRN Reason: Protocol Last Admin: 01/11/18 05:23 Dose: 100 mls/hr Insulin Human Regular (Humulin R Low) 0 units SC ACHS ROGER PRN Reason: Protocol Last Admin: 01/11/18 08:50 Dose: 1 unit Lactobacillus Acidophilus (Bacid Acidophilus) 1 cap PO BID [facility] Last Admin: 01/11/18 09:49 Dose: 1 cap Morphine Sulfate (Morphine) 2 mg IVP Q4H PRN PRN Reason: Pain, severe (8-10) Last Admin: 01/10/18 16:27 Dose: 2 mg Ondansetron HCl (Zofran Inj) 4 mg IVP Q6H PRN PRN Reason: Nausea/Vomiting - Labs Labs: 01/11/18 06:00 01/11/18 06:00 PT 13.8 SECONDS (9.4-12.5) H 01/08/18 16:48 INR 1.21 01/08/18 16:48 APTT 29.4 Seconds (25.1-36.5) 01/08/18 16:48 Attending/Attestation - Attestation I have personally seen and examined this patient.: Yes I have fully participated in the care of the patient.: Yes I have reviewed all pertinent clinical information, including history, physical exam and plan: Yes Notes (Text): Patient seen and examined by me at 10:10AM with resident 01/10/18. Case including HPI, physical exam, and assessment and plan discussed with resident. Agree with above with following additions/corrections. Patient states he is feeling better today. Still with a headache but tylenol is helping. States abdominal pain is much better. No dizziness or lightheadedness. No nausea or vomiting. No chest pain or shortness of breath. No dysuria. No fevers or chills today. Physical exam: General: Awake and alert lying in bed in no acute distress HEENT: Normocephalic atraumatic. Pupils equal reactive. Extraocular muscles intact. No scleral icterus. Oropharynx is pink and moist. No pharyngeal erythema or exudate appreciated. Neck is supple. Cardiovascular: Normal rhythm. Normal S1, S2. No murmurs, rubs, or gallops appreciated Pulmonary: Normal respiratory effort. No rhonchi, rales or wheezing appreciated. Gastrointestinal: Soft, nondistended. Positive right sided tenderness with palpation. Positive bowel sounds all 4 quadrants, no guarding. Musculoskeletal: Normal range of motion all extremities. No calf tenderness. No edema appreciated. Central nervous system: AAOx3. CN2-12 grossly intact. Dermatologic: Skin warm and dry Assessment and plan: Patient is a 57-year-old male with past medical history significant for stage IV colon cancer with metastases to the liver and type 2 diabetes that presented to the emergency room with right-sided abdominal pain. 1. Fever of unknown origin. No source of infection currently identified.Procalcitonin elevated. No leukocytosis. Continue on cefepime. UA negative for infection. Urine culture and blood cultures negative so far. Chest x-ray per radiologist shows no active disease. Bilateral lower extremity venous Dopplers negative for DVT. ID following, recommendations appreciated. 2. Type 2 diabetes with hyperglycemia. Hyperglycemia may be secondary to infection. Continue insulin sliding scale. Continue to monitor Accu-Cheks. 3. Abdominal pain. Likely secondary to cancer. Continues to improve. Continue with pain medications. Abdominal MRI on 01/06/2018. Etiology showed heterogeneous hepatic parenchyma with innumerable focal hepatic lesions consistent with known metastatic disease. Abdominal ultrasound per radiologist shows unremarkable abdominal sonogram. 4. Stage IV colon cancer metastatic to the liver. Patient's oncologist Dr. Rodriguez consulted. Patient has been off of chemotherapy recently secondary to upcoming procedure for directed liver therapy. 5. Lower extremity pain. Bilateral lower extremity venous Dopplers are negative for DVT. 6. Transaminitis. Likely secondary to liver mets. Continue to monitor. 7. DVT prophylaxis. Heparin Case was discussed in detail with the patient regarding current diagnosis and treatment plan.
[2018-01-11] MEDS: Cefepime 1gm in NS 100ml 1 GM/100 ML BAG IVPB SCH (05:23)
[2018-01-11 06:47] LABS: BASO # 0.01 K/mm3 (0.0-2.0); BASO % 0.2 % (0.0-3.0); EOS # 0.1 (0.0-0.7); EOS % 2.3 % (1.5-5.0); GRAN % 66.2 % (50.0-68.0); HEMOGLOBIN 11.3 g/dL (14.0-18.0); LYMPH # 1.2 (1.2-3.4); LYMPH % 19.4 % (22.0-35.0); MEAN CELL VOLUME 86.7 fl (80.0-105.0); MEAN CORPUSCULAR HGB CONC 34.6 g/dl (31.0-37.0); MEAN PLATELET VOLUME 9.4 fl (7.0-11.0); MONO # 0.7 (0.1-0.6); MONO % 11.9 % (1.0-6.0); RBC 3.77 10^6/uL (3.5-6.1); RED CELL DISTRIBUTION WIDTH 12.9 % (11.5-14.5)
[2018-01-11 07:41] LABS: ALB/GLOB RATIO 0.9 (1.1-1.8); ALBUMIN 3.5 g/dL (3.0-4.8); ALT/SGPT 52 U/L (7-56); AST/SGOT 54 U/L (17-59); BLOOD UREA NITROGEN 16 mg/dL (7-21); CALCIUM 8.8 mg/dL (8.4-10.5); GFR NON-AFRICAN AMERICAN > 60
[2018-01-11 08:49] VITALS: BP 157/92; PULSE 70; TEMP 98.3; O2SAT 98
[2018-01-11] MEDS: Insulin Reg-LOW-Coverage SC SCH ×2 (08:50→11:18)
[2018-01-11] MEDS: Lactobacillus Acidophilus 500 MU Cap PO SCH (09:49)
--- NOTE | 2018-01-11 13:29 | CP.PCM.DIS ---
<Benito Farfan - Last Filed: 01/11/18 13:36> Provider - Provider Date of Admission: 01/09/18 08:52 Attending physician: Yulia Rodrigues MD Primary care physician: Arlin Rodriguez MD Time Spent in preparation of Discharge (in minutes): 60 Hospital Course - Lab Results Lab Results: Most Recent Lab Values WBC 6.0 10^3/ul (4.5-11.0) D 01/11/18 06:00 RBC 3.77 10^6/uL (3.5-6.1) 01/11/18 06:00 Hgb 11.3 g/dL (14.0-18.0) L 01/11/18 06:00 Hct 32.7 % (42.0-52.0) L 01/11/18 06:00 MCV 86.7 fl (80.0-105.0) 01/11/18 06:00 MCH 30.0 pg (25.0-35.0) 01/11/18 06:00 MCHC 34.6 g/dl (31.0-37.0) 01/11/18 06:00 RDW 12.9 % (11.5-14.5) 01/11/18 06:00 Plt Count 187 10^3/uL (120.0-450.0) 01/11/18 06:00 MPV 9.4 fl (7.0-11.0) 01/11/18 06:00 Gran % 66.2 % (50.0-68.0) 01/11/18 06:00 Lymph % (Auto) 19.4 % (22.0-35.0) L 01/11/18 06:00 [place] % (Auto) 11.9 % (1.0-6.0) H 01/11/18 06:00 Eos % (Auto) 2.3 % (1.5-5.0) 01/11/18 06:00 Baso % (Auto) 0.2 % (0.0-3.0) 01/11/18 06:00 Gran # 4.00 (1.4-6.5) 01/11/18 06:00 Lymph # (Auto) 1.2 (1.2-3.4) 01/11/18 06:00 [place] # (Auto) 0.7 (0.1-0.6) H 01/11/18 06:00 Eos # (Auto) 0.1 (0.0-0.7) 01/11/18 06:00 Baso # (Auto) 0.01 K/mm3 (0.0-2.0) 01/11/18 06:00 PT 13.8 SECONDS (9.4-12.5) H 01/08/18 16:48 INR 1.21 01/08/18 16:48 APTT 29.4 Seconds (25.1-36.5) 01/08/18 16:48 pO2 23 mm/Hg (30-55) L 01/08/18 11:20 VBG pH 7.39 (7.32-7.43) 01/08/18 11:20 VBG pCO2 48.0 (40-60) 01/08/18 11:20 VBG HCO3 29.1 mmol/l (21-28) H 01/08/18 11:20 VBG Total CO2 30.6 mmol.L (22-28) H 01/08/18 11:20 VBG O2 Sat (Calc) 42.2 % (40-65) 01/08/18 11:20 VBG Base Excess 3.3 mmol/L (0.0-2.0) H 01/08/18 11:20 VBG Potassium 4.5 mmol/L (3.6-5.2) 01/08/18 11:20 Sodium 129.0 mmol/L (132-148) L 01/08/18 11:20 Chloride 94.0 mmol/L (98-107) L 01/08/18 11:20 Glucose 355 mg/dl (75-110) H 01/08/18 11:20 Lactate 1.6 mmol/L (0.7-2.1) 01/08/18 11:20 FiO2 21.0 % 01/08/18 11:20 Sodium 136 mmol/L (132-148) 01/11/18 06:00 Potassium 4.2 mmol/L (3.6-5.0) 01/11/18 06:00 Chloride 101 mmol/L (98-107) 01/11/18 06:00 Carbon Dioxide 25 mmol/L (21-33) 01/11/18 06:00 Anion Gap 14 (10-20) 01/11/18 06:00 BUN 16 mg/dL (7-21) 01/11/18 06:00 Creatinine 0.8 mg/dl (0.8-1.5) 01/11/18 06:00 Est GFR ( Amer) > 60 01/11/18 06:00 Est GFR (Non-Af Amer) > 60 01/11/18 06:00 POC Glucose (mg/dL) 190 mg/dL (65-110) H 01/11/18 07:04 Random Glucose 196 mg/dL (70-110) H 01/11/18 06:00 Calcium 8.8 mg/dL (8.4-10.5) 01/11/18 06:00 Phosphorus 2.6 mg/dL (2.5-4.5) 01/11/18 06:00 Magnesium 2.2 mg/dL (1.7-2.2) 01/11/18 06:00 Total Bilirubin 0.5 mg/dL (0.2-1.3) 01/11/18 06:00 AST 54 U/L (17-59) 01/11/18 06:00 ALT 52 U/L (7-56) 01/11/18 06:00 Alkaline Phosphatase 158 U/L (38-126) H 01/11/18 06:00 Total Protein 7.2 g/dL (5.8-8.3) 01/11/18 06:00 Albumin 3.5 g/dL (3.0-4.8) 01/11/18 06:00 Globulin 3.7 gm/dL 01/11/18 06:00 Albumin/Globulin Ratio 0.9 (1.1-1.8) L 01/11/18 06:00 Lipase 92 U/L (23-300) 01/08/18 11:20 Procalcitonin 0.62 NG/ML (0.19-0.49) H 01/08/18 16:48 Venous Blood Potassium 4.5 mmol/L (3.6-5.2) 01/08/18 11:20 Urine Color Yellow (YELLOW) 01/08/18 13:00 Urine Appearance Clear (CLEAR) 01/08/18 13:00 Urine pH 7.0 (4.7-8.0) 01/08/18 13:00 Ur Specific [place] 1.025 (1.005-1.035) 01/08/18 13:00 Urine Protein >=300 mg/dL (<30 mg/dL) H 01/08/18 13:00 Urine Glucose (UA) Negative mg/dL (NEGATIVE) 01/08/18 13:00 Urine Ketones Negative mg/dL (NEGATIVE) 01/08/18 13:00 Urine Blood Moderate (NEGATIVE) H 01/08/18 13:00 Urine Nitrate Negative (NEGATIVE) 01/08/18 13:00 Urine Bilirubin Negative (NEGATIVE) 01/08/18 13:00 Urine Urobilinogen 1.0 E.U./dL (<1 E.U./dL) H 01/08/18 13:00 Ur Leukocyte Esterase Negative Eladio/uL (NEGATIVE) 01/08/18 13:00 Urine RBC 2 - 5 /hpf (0-2) 01/08/18 13:00 Urine WBC 0 - 2 /hpf (0-6) 01/08/18 13:00 Ur Epithelial Cells 0 - 2 /hpf (0-5) 01/08/18 13:00 Urine Bacteria Few (NEG) 01/08/18 13:00 - Hospital Course Hospital Course: Hospital Admission: Patient is a 57 y/o M with PMHx of DM II and colorectal cancer with mets to liver who presented to the ED on 01/08 for worsening right sided abdominal pain. Patient had a recent admission in the hospital with abdominal MRI (01/06) indicating heterogenous hepatic parenchyma with focal hepatic lesions consistent with known mestastatic disease. In the ED, patient said the pain was lasting for a few days, constant, sharp, and denied radiation of pain. Associated symptoms were loss of appetite, nausea, vomiting, and dizziness. Patient's cancer and current chemotherapeutic regimen is being managed by Dr. Ochoa Rodriguez. During hospital admission, patient was hyperglycemic and his DM II was managed via Insulin Sliding scale. The abdominal pain is likely 2/2 CRC with liver metastasis. Abdominal pain improved during hospital stay; patient was being given morphine prn for pain control. Abdominal US (01/08) was unremarkable. In regards to the colon cancer, as per oncologist (Dr. Rodriguez), patient has been off chemotherapy because of upcoming procedure for directed liver therapy. Patient has had fever likely 2/2 malignancy; no leukocytosis, UA, Ux, Blood Cx, and CXR were all negative, given cefepime. Patient has been cleared by ID for discharge. Upon Discharge: Patient has been cleared by ID for discharge. Patient will follow up with PMD/oncologist Dr. Rodriguez in 1 week. Patient will resume home medications. Discharge Exam - Head Exam Head Exam: ATRAUMATIC, NORMAL INSPECTION - Eye Exam Eye Exam: EOMI, Normal appearance, PERRL Pupil Exam: NORMAL ACCOMODATION, PERRL - ENT Exam ENT Exam: Mucous Membranes Moist, Normal Exam - Neck Exam Neck exam: Full Rom, Normal Inspection - Respiratory Exam Respiratory Exam: Clear to PA & Lateral, NORMAL BREATHING PATTERN, UNREMARKABLE. absent: Accessory Muscle Use, Rales, Rhonchi, Wheezes, Respiratory Distress - Cardiovascular Exam Cardiovascular Exam: REGULAR RHYTHM, +S1, +S2. absent: Systolic Murmur - GI/Abdominal Exam GI & Abdominal Exam: Normal Bowel Sounds - Extremities Exam Extremities exam: full ROM, normal inspection, pedal pulses present - Back Exam Back exam: NORMAL INSPECTION - Neurological Exam Neurological exam: Alert, CN II-XII Intact, Oriented x3 - Skin Skin Exam: Dry, Intact, Normal Color, Warm Discharge Plan - Follow Up Plan Condition: FAIR Disposition: HOME/ ROUTINE Instructions: Acute Abdominal Pain (DC), Acute Abdominal Pain (GEN) Additional Instructions: Please follow up with PMD (Dr. Rodriguez) in 1 week. Please continue your home medications. Please return to the Emergency Department if symptoms reoccur. Referrals: Ochoa Rodriguez MD [Staff Provider] - <Yulia Rodrigues - Last Filed: 01/11/18 18:47> Provider - Provider Date of Admission: 01/09/18 08:52 Attending physician: Yulia Rodrigues MD Primary care physician: Arlin Rodriguez MD Hospital Course - Lab Results Lab Results: Most Recent Lab Values WBC 6.0 10^3/ul (4.5-11.0) D 01/11/18 06:00 RBC 3.77 10^6/uL (3.5-6.1) 01/11/18 06:00 Hgb 11.3 g/dL (14.0-18.0) L 01/11/18 06:00 Hct 32.7 % (42.0-52.0) L 01/11/18 06:00 MCV 86.7 fl (80.0-105.0) 01/11/18 06:00 MCH 30.0 pg (25.0-35.0) 01/11/18 06:00 MCHC 34.6 g/dl (31.0-37.0) 01/11/18 06:00 RDW 12.9 % (11.5-14.5) 01/11/18 06:00 Plt Count 187 10^3/uL (120.0-450.0) 01/11/18 06:00 MPV 9.4 fl (7.0-11.0) 01/11/18 06:00 Gran % 66.2 % (50.0-68.0) 01/11/18 06:00 Lymph % (Auto) 19.4 % (22.0-35.0) L 01/11/18 06:00 [place] % (Auto) 11.9 % (1.0-6.0) H 01/11/18 06:00 Eos % (Auto) 2.3 % (1.5-5.0) 01/11/18 06:00 Baso % (Auto) 0.2 % (0.0-3.0) 01/11/18 06:00 Gran # 4.00 (1.4-6.5) 01/11/18 06:00 Lymph # (Auto) 1.2 (1.2-3.4) 01/11/18 06:00 [place] # (Auto) 0.7 (0.1-0.6) H 01/11/18 06:00 Eos # (Auto) 0.1 (0.0-0.7) 01/11/18 06:00 Baso # (Auto) 0.01 K/mm3 (0.0-2.0) 01/11/18 06:00 PT 13.8 SECONDS (9.4-12.5) H 01/08/18 16:48 INR 1.21 01/08/18 16:48 APTT 29.4 Seconds (25.1-36.5) 01/08/18 16:48 pO2 23 mm/Hg (30-55) L 01/08/18 11:20 VBG pH 7.39 (7.32-7.43) 01/08/18 11:20 VBG pCO2 48.0 (40-60) 01/08/18 11:20 VBG HCO3 29.1 mmol/l (21-28) H 01/08/18 11:20 VBG Total CO2 30.6 mmol.L (22-28) H 01/08/18 11:20 VBG O2 Sat (Calc) 42.2 % (40-65) 01/08/18 11:20 VBG Base Excess 3.3 mmol/L (0.0-2.0) H 01/08/18 11:20 VBG Potassium 4.5 mmol/L (3.6-5.2) 01/08/18 11:20 Sodium 129.0 mmol/L (132-148) L 01/08/18 11:20 Chloride 94.0 mmol/L (98-107) L 01/08/18 11:20 Glucose 355 mg/dl (75-110) H 01/08/18 11:20 Lactate 1.6 mmol/L (0.7-2.1) 01/08/18 11:20 FiO2 21.0 % 01/08/18 11:20 Sodium 136 mmol/L (132-148) 01/11/18 06:00 Potassium 4.2 mmol/L (3.6-5.0) 01/11/18 06:00 Chloride 101 mmol/L (98-107) 01/11/18 06:00 Carbon Dioxide 25 mmol/L (21-33) 01/11/18 06:00 Anion Gap 14 (10-20) 01/11/18 06:00 BUN 16 mg/dL (7-21) 01/11/18 06:00 Creatinine 0.8 mg/dl (0.8-1.5) 01/11/18 06:00 Est GFR ( Amer) > 60 01/11/18 06:00 Est GFR (Non-Af Amer) > 60 01/11/18 06:00 POC Glucose (mg/dL) 190 mg/dL (65-110) H 01/11/18 07:04 Random Glucose 196 mg/dL (70-110) H 01/11/18 06:00 Calcium 8.8 mg/dL (8.4-10.5) 01/11/18 06:00 Phosphorus 2.6 mg/dL (2.5-4.5) 01/11/18 06:00 Magnesium 2.2 mg/dL (1.7-2.2) 01/11/18 06:00 Total Bilirubin 0.5 mg/dL (0.2-1.3) 01/11/18 06:00 AST 54 U/L (17-59) 01/11/18 06:00 ALT 52 U/L (7-56) 01/11/18 06:00 Alkaline Phosphatase 158 U/L (38-126) H 01/11/18 06:00 Total Protein 7.2 g/dL (5.8-8.3) 01/11/18 06:00 Albumin 3.5 g/dL (3.0-4.8) 01/11/18 06:00 Globulin 3.7 gm/dL 01/11/18 06:00 Albumin/Globulin Ratio 0.9 (1.1-1.8) L 01/11/18 06:00 Lipase 92 U/L (23-300) 01/08/18 11:20 Procalcitonin 0.37 NG/ML (0.19-0.49) 01/11/18 06:00 Venous Blood Potassium 4.5 mmol/L (3.6-5.2) 01/08/18 11:20 Urine Color Yellow (YELLOW) 01/08/18 13:00 Urine Appearance Clear (CLEAR) 01/08/18 13:00 Urine pH 7.0 (4.7-8.0) 01/08/18 13:00 Ur Specific [place] 1.025 (1.005-1.035) 01/08/18 13:00 Urine Protein >=300 mg/dL (<30 mg/dL) H 01/08/18 13:00 Urine Glucose (UA) Negative mg/dL (NEGATIVE) 01/08/18 13:00 Urine Ketones Negative mg/dL (NEGATIVE) 01/08/18 13:00 Urine Blood Moderate (NEGATIVE) H 01/08/18 13:00 Urine Nitrate Negative (NEGATIVE) 01/08/18 13:00 Urine Bilirubin Negative (NEGATIVE) 01/08/18 13:00 Urine Urobilinogen 1.0 E.U./dL (<1 E.U./dL) H 01/08/18 13:00 Ur Leukocyte Esterase Negative Eladio/uL (NEGATIVE) 01/08/18 13:00 Urine RBC 2 - 5 /hpf (0-2) 01/08/18 13:00 Urine WBC 0 - 2 /hpf (0-6) 01/08/18 13:00 Ur Epithelial Cells 0 - 2 /hpf (0-5) 01/08/18 13:00 Urine Bacteria Few (NEG) 01/08/18 13:00 Attending/Attestation - Attestation I have personally seen and examined this patient.: Yes I have fully participated in the care of the patient.: Yes I have reviewed all pertinent clinical information, including history, physical exam and plan: Yes Notes (Text): 01/11/18 18:45 Attending note; Patient seen and examined with resident. Patient is a 57-year-old male with past medical history significant for stage IV colon cancer with metastases to the liver and type 2 diabetes that presented to the emergency room with right-sided abdominal pain. 1. Fever of unknown origin. No source of infection currently identified. No leukocytosis. Treated with IV cefepime. Urine culture and blood cultures negative so far. Chest x-ray shows no active disease. Bilateral lower extremity venous Dopplers negative for DVT. Case discussed with ID in detail. Patient has been afebrile over 48 hours. Stop antibiotics. 2. Type 2 diabetes with hyperglycemia. Hyperglycemia may be secondary to infection. Continue insulin sliding scale. Continue to monitor Accu-Cheks. 3. Abdominal pain. Likely secondary to cancer. Continues to improve. Continue with pain medications. Abdominal MRI on 01/06/2018. Etiology showed heterogeneous hepatic parenchyma with innumerable focal hepatic lesions consistent with known metastatic disease. Abdominal ultrasound shows unremarkable abdominal sonogram. 4. Stage IV colon cancer metastatic to the liver. Case discussed with Dr. Rodriguez in detail. Patient can follow up with him in his office next week. Patient has been off of chemotherapy recently secondary to upcoming procedure for directed liver therapy. Patient has an appointment with Dr. Jean-Paul Maria on Thursday. 5. Lower extremity pain. Bilateral lower extremity venous Dopplers are negative for DVT. 6. Transaminitis. Likely secondary to liver mets. Continue to monitor. Patient will be discharged home today. Follow-up with PMD . Case was discussed in detail with the patient regarding current diagnosis and treatment plan.
--- NOTE | 2018-01-11 16:19 | CP.PCM.PN ---
Subjective - Date & Time of Evaluation Date of Evaluation: 01/11/18 Time of Evaluation: 15:45 - Subjective Subjective: Infectious Disease Follow Up: January 11, 2018 57 yo male with PMHx of olon cancer with metastasis to the liver and DM, presents to the ED with the complaint of progressively worsening right sided abdominal pain. Patient had a liver mapping procedure done by interventional radiology 2 weeks ago. Abdominal pain started 4 days ago which he rated as a 6/ 10 initially. Pain level escalated to 10/10 which is why he came to [facility] now. He was off chemotherapy as he was supposed to see Dr. Jean-Paul Maria for a liver procedure. Afebrile even though temperature did get up to 100.0 F. Cefepime started for antibiotic treatment. No growth on cultures. The patient states that he feels better. Objective - Vital Signs/Intake and Output Vital Signs (last 24 hours): Temp Pulse Resp BP Pulse Ox 98.3 F 70 20 157/92 H 98 01/11/18 08:49 01/11/18 08:49 01/11/18 08:49 01/11/18 08:49 01/11/18 08:49 Intake and Output: 01/11/18 01/11/18 06:59 18:59 Intake Total 1005 Output Total 500 Balance 505 - Labs Labs: 01/11/18 06:00 01/11/18 06:00 PT 13.8 SECONDS (9.4-12.5) H 01/08/18 16:48 INR 1.21 01/08/18 16:48 APTT 29.4 Seconds (25.1-36.5) 01/08/18 16:48 - Constitutional Appears: Non-toxic, No Acute Distress, Chronically Ill - Head Exam Head Exam: ATRAUMATIC, NORMOCEPHALIC - Eye Exam Eye Exam: EOMI, PERRL Pupil Exam: NORMAL ACCOMODATION, PERRL - ENT Exam ENT Exam: Mucous Membranes Moist, Normal External Ear Exam, TM's Normal Bilaterally - Neck Exam Neck Exam: Full ROM, Normal Inspection - Respiratory Exam Respiratory Exam: Clear to Ausculation Bilateral, NORMAL BREATHING PATTERN. absent: Rales, Rhonchi, Wheezes - Cardiovascular Exam Cardiovascular Exam: REGULAR RHYTHM, RRR, +S1, +S2 - GI/Abdominal Exam GI & Abdominal Exam: Soft, Normal Bowel Sounds. absent: Distended, Tenderness - Extremities Exam Extremities Exam: Full ROM, Normal Inspection - Neurological Exam Neurological Exam: Alert, Awake, CN II-XII Intact, Oriented x3 - Psychiatric Exam Psychiatric exam: Normal Affect, Normal Mood - Skin Skin Exam: Dry, Intact, Normal Color Assessment and Plan - Assessment and Plan (Free Text) Assessment: 57 yo Male, PMHx of metastatic colon cancer (Stage IV) to the liver and DM, presents to the ED with right sided abdominal pain 2 weeks after a laproscopic liver mapping procedure done by IR. In ED patient given morphine and zofran that resolved the symptoms. However fevers up to 102.2 F earlier in admission. Cultures sent on admission. So far no growth within 24 hours. Check Procalcitonin levels... initial check was 0.62. Recheck procalcitonin. On Cefepime. No obvious source for the fever. Abdominal pain persistent - secondary to colon cancer? No leukocytosis. Supportive care. Await final culture results. So far no growth. No further fevers for the past 72 hours. Cleared for discharge from ID perspective. Can consider use of Keflex 500mg TID for 7 days PO on discharge. Thank you for allowing me to participate in the care of the patient, we will follow with you.
--- NOTE | 2018-01-11 17:39 | US ---
HISTORY: Leg pain and swelling. Evaluate for DVT PHYSICIAN(S): Jean-Paul Maria MD. TECHNIQUE: Duplex sonography and color-flow Doppler with graded compression were used to evaluate the deep venous systems of both lower extremities. FINDINGS: The visualized deep venous systems of both lower extremities are sonographically normal and compressible. Normal wave forms and augmentation are seen. There is no sonographic evidence for deep venous thrombosis in the visualized segments of both lower extremities. IMPRESSION: No sonographic evidence for deep venous thrombosis in the visualized segments of both lower extremities.
== END 2018-01-11 16:03 | disposition home or self-care (01) | DRG 172 ==
LOC: ED 10:32 → ERH 14:10 → 3RSO 15:36 → OBSVTOIN 01-09 08:52 → INTOOBSV 01-09 09:43
PROVIDERS: ADMIT Hospitalist; ATTEND Internal Medicine
DX: C18.9 Malignant neoplasm of colon, unspecified (principal); C78.7 Secondary malignant neoplasm of liver and intrahepatic bile duct; E11.65 Type 2 diabetes mellitus with hyperglycemia; R50.9 Fever, unspecified; R74.0 Nonspecific elevation of levels of transaminase and lactic acid dehydrogenase [LDH]; R51 Headache

== ENCOUNTER 2018-01-13 06:54 | Day surgery (SDC) | payer OTHER ==
[2018-01-12 13:37] VITALS: BMI 23.6
[2018-01-13 07:29] LABS: BASO # 0.01 K/mm3 (0.0-2.0); BASO % 0.2 % (0.0-3.0); EOS # 0.1 (0.0-0.7); GRAN # 3.82 (1.4-6.5); GRAN % 68.2 % (50.0-68.0); HEMOGLOBIN 11.8 g/dL (14.0-18.0); LYMPH # 1.4 (1.2-3.4); MEAN CELL VOLUME 87.9 fl (80.0-105.0); MEAN CORPUSCULAR HEMOGLOBIN 30.3 pg (25.0-35.0); MEAN CORPUSCULAR HGB CONC 34.5 g/dl (31.0-37.0); MEAN PLATELET VOLUME 9.2 fl (7.0-11.0); MONO # 0.3 (0.1-0.6); MONO % 4.6 % (1.0-6.0); RBC 3.89 10^6/uL (3.5-6.1); RED CELL DISTRIBUTION WIDTH 12.9 % (11.5-14.5); WHITE BLOOD COUNT 5.6 10^3/ul (4.5-11.0)
[2018-01-13 07:39] LABS: PARTIAL THROMBOPLASTIN TIME 32.6 Seconds (25.1-36.5); PROTHROMBIN TIME 11.5 SECONDS (9.4-12.5)
[2018-01-13 07:41] LABS: BLOOD UREA NITROGEN 17 mg/dL (7-21); CALCIUM 9.4 mg/dL (8.4-10.5); GFR NON-AFRICAN AMERICAN > 60
[2018-01-13] MEDS ORDERED: Iodixanol 320 mg/ml 150 ml Bottle IV ONE (07:43)
[2018-01-13] MEDS ORDERED: Nitroglycerin 50mg in D5W 50 MG/250 ML BOTTLE IV ONE (07:43)
[2018-01-13] MEDS ORDERED: Iodixanol 320 MG/ML 200 ML BOTTLE IV ONE (07:47)
[2018-01-13] MEDS ORDERED: Midazolam 2 MG/2 ML VIAL ONE ×2 (09:52→09:56)
[2018-01-13] MEDS ORDERED: Iodixanol 320 MG/ML 100 ML BOTTLE IV ONE (10:21)
[2018-01-13] MEDS ORDERED: HYDROmorphone 2 mg/ml ISec ONE (11:26)
[2018-01-13] MEDS ORDERED: Oxycodone/Acetaminophen 5/325 mg Tab PO PRN (11:47)
[2018-01-13] MEDS ORDERED: HYDROmorphone 2 mg/ml ISec IVP PRN (11:48)
[2018-01-13] MEDS ORDERED: Sodium Chloride 0.45% 1,000 ML IV SCH (12:00)
[2018-01-13 13:15] VITALS: TEMP 97.6
[2018-01-13 13:50] VITALS: O2SAT 99
[2018-01-13] MEDS ORDERED: Oxycodone/Acetaminophen 5/325 mg Tab ONE (15:23)
[2018-01-13 16:00] VITALS: RESP 18
[2018-01-13 16:01] VITALS: BP 158/86; PULSE 66
--- NOTE | 2018-01-13 19:15 | VASCULAR ---
PROCEDURE: 1. Sub selective hepatic arteriogram 2. Y 90 embolization of the right lobe of the liver. HISTORY: Metastatic colorectal CA. Progression on first-line chemotherapy. Y 90 embolization PHYSICIAN(S): Jean-Paul Maria M.D. TECHNIQUE: The relative risks and indications of the procedure were explained to the patient and his family and consent obtained. The patient was hydrated prior to the procedure and the appropriate labs drawn. The patient was placed supine on the arteriogram table and the right groin prepped and draped in the usual sterile fashion. Conscious sedation and monitoring were provided throughout the procedure by a nurse. Via a right common femoral artery approach, a 5 Romanian sheath was placed in the right groin. Through the sheath and over a guidewire, a 5 Romanian C2 catheter was placed in the common hepatic artery and a DSA common hepatic arteriogram performed. Using a coaxial technique, a Progreat micro catheter was advanced into the proximal right hepatic artery and its position confirmed. Wide 90 embolization was performed of the right hepatic artery. No evidence of stasis, dissection, or thrombus was appreciated. The patient tolerated the procedure well. FINDINGS: Neovascularity is once again seen it in the right lobe of the liver and segment 4. IMPRESSION: 1.Successful sub selective embolization of Y 90 into the right hepatic artery. 2. Sub selective Y 90 embolization of the middle hepatic artery will be performed in approximately 4 weeks
--- NOTE | 2018-01-15 15:24 | VASCULAR ---
Date of service: 01/13/2018 PROCEDURE: Right talamantes therapy, yttrium 90. HISTORY: Post Y-90 Injection COMPARISON: January 14, 2018. CT chest abdomen and pelvis. TECHNIQUE: 31.5 mCi yttrium 90 administered via hepatic artery catheter infusion. FINDINGS: Confirmation of delivery of radionuclide to the liver. Static images as well as planar imaging submitted. Heterogeneous radionuclide distribution identified in the liver. IMPRESSION: Successfully yttrium 90 delivery to the liver via hepatic artery infusion.
== END 2018-01-13 17:25 | disposition home or self-care (01) ==
LOC: SDSVAS 06:54 → EDBD 06:54 → SDSVAS 17:25
PROVIDERS: ATTEND Radiology Vascular & Interventional Radiology
DX: C78.7 Secondary malignant neoplasm of liver and intrahepatic bile duct (principal); C19 Malignant neoplasm of rectosigmoid junction
CPT/HCPCS: 36247; 36415; 37243; 80048; 85025; 85610; 85730; 99152; 99153; C1760; C1769 ×3; C1894; C2616; J0690; J1170; J1644; J2250; J2405; J3010; J7030; Q9966; Q9967 ×2